=== PATIENT | female | born 1940 | race Caucasian/White ===

== ENCOUNTER 2018-12-27 05:37 | Inpatient (IN) | payer MEDICARE, BC ==
[~2018-12-27 05:37] MED LIST: Buffered Lidocaine 1% SYRIN* 1 ML/SYRINGE INTRADERM ONE
--- OUTSIDE RECORDS SUMMARY | 2018-12-27 05:39 | XMS REPORT | Continuity of Care Document ---
:1940 External Reference #:[id number] Author Name Carly Edwards Care Team Providers Name Role Phone Liliam Grey MD Primary Care Physician Unavailable Payers Date Identification Numbers Payment Provider Subscriber Policy Number: [id number] Medicare Cheryl Resendiz PayID: [id number] [address] [place] [address] Policy Number: [id number] [employer] Cheryl Resendiz PayID: [id number] [address] [address] [place] [address] Advance Directives Description No Information Available Problems Date Description Provider Status Onset: 11/16/2018 Neurogenic claudication Christian Rivas M.D. Active Onset: 11/16/2018 Lumbar spondylolisthesis Christian Rivas M.D. 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 ETOH Use Rarely consumes alcohol Tobacco Use Start: Unknown Patient has never smoked Recreational Drug Use Never Used Drugs Smoking Status Reviewed: 12/07/18 Patient has never smoked Allergies, Adverse Reactions, Alerts Description No Known Drug Allergies Medications Medication Date Status Form Strength Qnty SIG Indications Ordering Provider Lisinopril-Hy Active Tablets 20-25mg 1 by Unknown drochlorothia 000 mouth zide every day Gabapentin Active Capsules 300mg 1 by Unknown 000 mouth three times a day Prolia Active Solution 60mg/ml 60 mg sc Unknown 000 q6mon Calcium + D Active Chewtabs 500-1000-40 Unknown 000 mg-Unt-mcg Aspir-Low Hx Tablets DR 81mg 1 by Unknown 000 - mouth every 019 day Immunizations Description No Information Available Vital Signs Date Vital Result Comment 12/07/2018 1:15pm Height 65 inches 5'5" Weight 128.00 lb BP Systolic Sitting 140 mmHg BP Diastolic Sitting 80 mmHg Pain Level 0 BMI (Body Mass Index) 21.3 kg/m2 11/16/2018 1:22pm Height 65 inches 5'5" Weight 128.00 lb BP Systolic Sitting 138 mmHg BP Diastolic Sitting 80 mmHg Pain Level 0 BMI (Body Mass Index) 21.3 kg/m2 Results Description No Information Available Procedures Description No Information Available Encounters Type Date Location Provider Dx Diagnosis Office Visit 12/07/2018 Neurosurgery Christian Rivas M43.16 Spondylolisthesis 1:[facility] , lumbar region M48.062 Spinal stenosis, lumbar region with neurogenic claudication Office 11/16/2018 Neurosurgery Christian M43.16 Spondylolisthesis, Visit 1:[facility] M.[facility]. lumbar region M48.062 Spinal stenosis, lumbar region with neurogenic claudication Plan of Treatment Future Appointment(s):12/27/2018 7:30 am - Tika Ramirez PA-C at [facility]12/27/2018 7:30 am - Christian Rivas M.D. at [facility]12/07/2018 - Christian Rivas M.D.M43.16 Spondylolisthesis, lumbar [id number] Spinal stenosis, lumbar region with neurogenic claudicationFollow up:Surg scheduled for 12/27
--- OUTSIDE RECORDS SUMMARY | 2018-12-27 05:40 | XMS REPORT | Continuity of Care Document ---
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 Commercial Cheryl Resendiz PayID: [id number] [address] [address] [place] [address] Advance Directives Description No Information Available Problems Date Description Provider Status Onset: 08/12/2009 Benign essential hypertension Liliam Grey MD Active Onset: 05/18/2017 Mixed hyperlipidemia Liliam Grey MD Active Family History Date Family Member(s) Observation Comments Father Cancer, Prostate Mother Cancer, Colon Mother Tobacco Abuse Mother Hypertension First Son Diabetes, Juvenile First Daughter Diabetes, Juvenile Maternal Grandfather due to Cancer, Colon () Social History Type Date Description Comments Sex Unknown Marital Status Lives With Spouse Smoke-Free Home is smoke-free Occupation [employer] 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 Tobacco Use Start: Unknown Never Smoked Cigarettes ETOH Use Denies alcohol use ETOH Use Rarely consumes alcohol Tobacco Use Start: Unknown Patient has never smoked Smoking Status Reviewed: 12/13/18 Patient has never smoked Allergies, Adverse Reactions, Alerts Description No Known Drug Allergies Medications Medication Date Status Form Strength Qnty SIG Indications Ordering Provider Work Note pt will be M54.16 Que2018 having Liliam Leija MD 12/27/18 thus out of work at least until 01/23/19. Relase to work per surgeon Lisinopril-H 10/12/ Active Tablets 20-12.5mg 90tabs 1 by mouth I10 chantelle Alcala 2018 every day emma Graham RN [facility] Gabapentin 10/05/ Active Capsules 300mg 360cap take 1 M79.604 Fredrick, 2018 s capsule by Erin Weber, mouth 4 times RN MS [facility] a day Prolia 02/09/ Active Solution 60mg/ml 1ml 1 milliliters Z13.820 Fredrick, 2017 sc inj every Erin Webre, 6 mo RN MS [facility] Occuvite 01/27/ Active One Daily Fredrick, 2016 Erin Weber, RN MS [facility] Calcium Plus 08/11/ Active Tablets 500mg 0tabs 1 PO qd M81.0 Everardo Alcala 2005 Erin Weber, RN MS [facility] Prednisone 10/12/ Hx Tablets 20mg 5tabs one tab daily Fredrick, 2018 - x 5 days Erin Weber, 12/13/ RN MS [facility] 2019 Gabapentin 02/09/ Hx Capsules 100mg 90caps 300mg at hs M79.604 Fredrick, 2017 - and up to 300 Erin Weber, 10/05/ mg in am RN MS [facility] 2018 Prolia 05/18/ Hx Solution 60mg/ml 1units inject 1 M81.0 Que, 2016 - milliliters Liliam 02/09/ every 6 MD Liss 2017 months Proair HFA 10/26/ Hx Aerosol 108(90Base 1units 2 inhalations 466.0 Fredrick 2014 - ) mcg/Act by mouth Erin Weber, 01/27/ three times a RN MS [facility] 2016 day as needed for wheezing Medrol (Devin) 10/26/ Hx Tablets 4mg 1Pak use as 466.0 Fredrick 2015 - directed Erin Weber, 01/27/ RN MS [facility] 2016 Lisinopril-H 09/09/ Hx Tablets 10-12.5mg 30tabs take 1 tablet I10 chantelle Alcala 2009 - by mouth once emma Graham 10/12/ daily RN MS [facility] 2018 Lisinopril/H 05/19/ Hx Tabs 10-12.5mg 30tabs take 1 tablet 272.2 chantelle Grey 2009 - by mouth once Liliam carter 06/16/ daily MD Liss 2009 Lisinopril-H 12/09/ Hx Tablets 10-12.5mg 30tabs 1 po qd 401.1 matthias Greyoth 2009 - Liliam iazide 09/09/ MD Liss 2009 Valtrex 09/16/ Hx Tablets 1gm 21tabs 1 po tid Que, 2008 - Liliam 12/09/ MD Liss 2009 Lisinopril 10/11/ Hx Tablets 10mg 30tabs 1 PO qd 401.1 Fredrick, 2008 - Erin Weber, 12/09/ RN [place] [employer] 2009 Relafen 08/11/ Hx Tablets 750mg 60tabs 1-2 [facility] - Liliam 06/16/ MD Liss 2009 Fosamax 08/11/ Hx Tablets 70mg 12tabs 1 po qweek on [place], 2005 - empty stomach Erin Weber, 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 [place] [employer] 2012 On Holiday Starting 03/20/10 X 1 Yr Baby Asa 08/11/ Hx 81 qd [place], 2005 - Erin Weber, 12/13/ RN [place] [employer] 2018 Metamucil 08/11/ Hx Granules Tabs 2 tabs qd 2005 - Erin Weber, 05/04/ RN [place] [employer] 2011 Medications Administered in Office Medication Date Status Form Strength Qnty SIG Indications Ordering Provider Prolia 60 Administered Injection Nurses mg/ml 019 Schedule Mag Prolia 60 Administered Injection Nurses mg/ml 018 Schedule Mag Prolia 60 Administered Injection Nurses mg/ml 017 Schedule Mag Immunizations CPT Code Status Date Vaccine Lot # [id number] Given 06/23/2018 Influenza Vac, Quadrivalent, Split, 0.5mL Dosage, [id number] Im Use 59169 Given 11/12/2017 Tdap (Adacel) Ages 7 And Above Only 93867 Given 05/18/2017 Influenza Vac, Quadrivalent, Split, 0.5mL Dosage, [id number] Im Use 75527 Given 01/27/2017 Prevnar 13 Pneumococal Conjugate Vaccine [id number] 37965 Given 06/18/2016 Influenza Vac, Quadrivalent, Split, 0.5mL Dosage, [id number] Im Use 80774 Given 07/04/2015 Influenza Vac, Quadrivalent, Split, 0.5mL Dosage, [id number] Im Use Q2038 Given 07/30/2014 Fluzone Trivalent Immunization Q2038 Given 07/30/2014 Fluzone Trivalent Immunization [id number] Q2038 Given 07/03/2013 Fluzone Trivalent Immunization [id number] 09086 Given 05/17/2013 Zoster (Zostavax) [id number] 40369 Given 05/17/2013 Zoster (Zostavax) Q2038 Given 08/15/2012 Fluzone Trivalent Immunization [id number] Q2038 Given 07/07/2011 Fluzone Trivalent Immunization [id number] 05329 Given 10/20/2010 Tdap (Adacel) Ages 7 And Above Only [id number] 46258 Given 06/16/2010 Afluria Or Fluvirin Flu Vac Intramuscular 55870 Given 08/12/2009 Pneumococcal 23 Immunization Adult Or [id number] Immunosuppressed Patient 63239 Given 06/20/2009 Afluria Or Fluvirin Flu Vac Intramuscular [id number] 63641 Given 08/08/2008 Afluria Or Fluvirin Flu Vac Intramuscular [id number] 20611 Given 07/21/2007 Afluria Or Fluvirin Flu Vac Intramuscular 81570 Given 07/21/2007 Afluria Or Fluvirin Flu Vac Intramuscular [id number] 94846 Given 08/11/2006 Afluria Or Fluvirin Flu Vac Intramuscular [id number] Vital Signs Date Vital Result Comment 12/13/2018 3:08pm Heart Rate 72 /min BP Systolic 138 mmHg BP Diastolic 68 mmHg Height 63 inches 5'3" Weight 133.00 lb BMI (Body Mass Index) 23.6 kg/m2 10/12/2018 3:18pm Heart Rate 64 /min BP Systolic 190 mmHg BP Diastolic 86 mmHg Weight 133.00 lb 07/27/2018 3:23pm Heart Rate 70 /min BP Systolic 158 mmHg BP Diastolic 77 mmHg Weight 135.12 lb 02/09/2018 3:39pm Heart Rate 63 /min BP Systolic 170 mmHg 168/90 BP Diastolic 79 mmHg 168/90 Weight 132.12 lb 08/06/2017 3:38pm Heart Rate 73 /min BP Systolic 147 mmHg BP Diastolic 76 mmHg Weight 133.38 lb 05/18/2017 2:11pm Heart Rate 64 /min BP Systolic 154 mmHg BP Diastolic 70 mmHg BP Systolic Recheck 140 mmHg BP Diastolic Recheck 68 mmHg Height 63 inches 5'3" Weight 132.00 lb BMI (Body Mass Index) 23.4 kg/m2 01/27/2017 3:04pm Heart Rate 62 /min BP Systolic 156 mmHg BP Diastolic 80 mmHg Height 63 inches 5'3" Weight 134.25 lb BMI (Body Mass Index) 23.8 kg/m2 10/26/2014 4:43pm Heart Rate 63 /min BP Systolic 179 mmHg BP Diastolic 77 mmHg Weight 132.50 lb 05/31/2014 3:13pm Heart Rate 63 /min BP Systolic 143 mmHg BP Diastolic 76 mmHg Height 64 inches 5'4" Weight 132.38 lb BMI (Body Mass Index) 22.7 kg/m2 12/28/2013 3:27pm Heart Rate 73 /min BP Systolic 150 mmHg BP Diastolic 72 mmHg Weight 133.50 lb 12/01/2013 2:03pm Heart Rate 65 /min BP Systolic 148 mmHg BP Diastolic 76 mmHg Height 64 inches 5'4" Weight 131.00 lb BMI (Body Mass Index) 22.5 kg/m2 11/28/2012 5:34pm Heart Rate 60 /min BP Systolic 162 mmHg BP Diastolic 78 mmHg BP Systolic Recheck 138 mmHg BP Diastolic Recheck 76 mmHg Height 64.5 inches 5'4.50" Weight 136.00 lb BMI (Body Mass Index) 23.0 kg/m2 05/04/2012 10:46am Heart Rate 77 /min BP Systolic 134 mmHg BP Diastolic 81 mmHg Weight 133.00 lb 04/20/2011 12:18pm Heart Rate 64 /min BP Systolic 156 mmHg BP Diastolic 62 mmHg BP Systolic Recheck 136 mmHg BP Diastolic Recheck 64 mmHg Weight 140.00 lb 10/20/2010 4:31pm Heart Rate 64 /min BP Systolic 142 mmHg BP Diastolic 68 mmHg BP Systolic Recheck 138 mmHg BP Diastolic Recheck 66 mmHg Height 64.75 inches 5'4.75" Weight 139.00 lb BMI (Body Mass Index) 23.3 kg/m2 Urine Dipstick - Blood NEGATIVE Urine Dipstick - Protein NEGATIVE Urine Dipstick - Glucose NEGATIVE 06/16/2010 3:52pm Heart Rate 64 /min BP Systolic 146 mmHg BP Diastolic 78 mmHg BP Systolic Recheck 128 mmHg BP Diastolic Recheck 78 mmHg Weight 138.00 lb 02/14/2010 3:47pm Heart Rate 76 /min BP Systolic 120 mmHg BP Diastolic 54 mmHg Weight 140.00 lb 12/09/2009 3:58pm Heart Rate 66 /min BP Systolic 184 mmHg BP Diastolic 81 mmHg Weight 140.00 lb 08/12/2009 5:59pm Heart Rate 72 /min BP Systolic 150 mmHg BP Diastolic 66 mmHg Height 64.75 inches 5'4.75" Weight 139.00 lb BMI (Body Mass Index) 23.3 kg/m2 Urine Dipstick - Blood NEGATIVE Urine Dipstick - Protein NEGATIVE Urine Dipstick - Glucose NEGATIVE 10/11/2008 3:26pm Heart Rate 65 /min BP Systolic 199 mmHg BP Diastolic 96 mmHg Height 64.5 inches 5'4.50" Weight 144.00 lb BMI (Body Mass Index) 24.3 kg/m2 03/20/2008 8:29am Heart Rate 71 /min BP Systolic 153 mmHg BP Diastolic 87 mmHg Height 64.5 inches 5'4.50" Weight 147.00 lb BMI (Body Mass Index) 24.8 kg/m2 07/21/2007 3:50pm Body Temperature 97.1 F Height 64.5 inches 5'4.50" 03/10/2007 1:23pm Heart Rate 80 /min BP Systolic 146 mmHg BP Diastolic 70 mmHg Height 64.5 inches 5'4.50" Weight 150.00 lb BMI (Body Mass Index) 25.3 kg/m2 08/11/2006 10:03am Heart Rate 80 /min BP Systolic 160 mmHg BP Diastolic 100 mmHg Weight 148.00 lb Results Test Date Facility Test Result H/L Range Note CBC with Auto Diff-fcmg 12/13/2018 [facility] WBC 5.4 K/uL 4.1-11.0 RBC 4.84 M/uL 4.00-5.40 Hemoglobin 14.0 gm/dL 12.0-16.0 Hematocrit 41.3 % 36.0-47.0 MCV 85.3 fL 80.0-97.0 MCH 28.9 pg 27.0-32.0 MCHC 33.9 g/dL 32.0-36.0 RDW 14.0 % 11.5-14.5 PLT Count 215 K/ul 140-400 MPV 7.0 FL Low 7.1-10.7 Neutrophil 57.0 % 35.0-75.0 Lymphocyte 25.9 % 16.0-52.0 Monocyte 10.2 % High 2.0-10.0 Eosinophil 6.1 % High 0.0-5.0 Basophil 0.8 % 0.0-4.0 Abs Neutrophils 3.1 K/uL 2.1-8.0 Abs Lymphocytes 1.4 K/uL 0.8-5.5 Abs Monocytes 0.6 K/uL 0.1-1.0 Abs Eosinophils 0.3 K/uL 0.0-0.5 Abs Basophils 0.0 K/uL 0.0-0.3 Basic (BMP) 12/13/2018 [facility] Sodium 140 mmol/L 135-146 1 Potassium 5.1 mmol/L 3.5-5.2 Chloride# 103 mmol/L 97-110 2 Carbon Dioxide 31 mmol/L 24-34 Glucose 109 mg/dL High 70-105 BUN 22 mg/dL 6-26 Creatinine 0.8 mg/dL 0.5-1.4 Calcium 10.4 mg/dL High 8.5-10.2 Non Tiff Egfr >60 >60 3 Tiff Egfr >60 >60 4 Anion Gap 6 mmol/L 5-15 5 Xray 02/10/2018 [facility], <pending> [place] [address] Screening, Bilateral [phone] Lipid 05/18/2017 [facility] Cholesterol 221 mg/dL High 50-199 6 Triglycerides 174 mg/dL 30-200 7 HDL 70 mg/dL 35-85 8 Chol/ HDL Ratio 3.2 ratio Low 3.7-5.6 VLDL 35 mg/dL High 2-29 LDL (Calc) 116 mg/dL High 20-99 9 Laboratory test finding 05/18/2017 [facility] Vit D25oh 32 ng/mL 31-100 Comprehensive Met Panel-FCMG 05/18/2017 [facility] Sodium 142 mmol/L 135- 146 10 Potassium 4.1 mmol/L 3.5-5.2 Chloride# 105 mmol/L 97-110 11 Carbon Dioxide 28 mmol/L 24-34 Glucose 147 mg/dL High 70-105 BUN 21 mg/dL 6-26 Creatinine 0.9 mg/dL 0.5-1.4 Calcium 9.9 mg/dL 8.5-10.2 Total Protein 6.0 g/dL 6.0-8.0 Albumin 4.1 g/dL 3.6-4.9 Globulin 1.9 g/dL Low 2.0-3.5 A/G Ratio 2.2 Ratio 1.0-2.2 Total Bilirubin 0.7 mg/dL 0.1-1.3 Alkaline Phosphatase 69 U/L 24-140 Alt 17 U/L 3-42 Ast 23 U/L 8-42 Tiff Egfr >60 >60 12 Non Tiff Egfr 58 Low >60 13 Anion Gap 9 mmol/L 7-16 14 Laboratory test finding 05/18/2017 [facility] TSH 2.42 uIU/mL 0.35-4.94 Comprehensive Metabolic (CMP) 05/31/2014 [facility] Sodium 134 mmol/L 134- 142 15 Potassium 4.4 mmol/L 3.5-5.2 Chloride 100 mmol/L 97-109 Carbon Dioxide 32 mmol/L 24-34 Glucose 78 mg/dL 70-105 BUN 17 mg/dL 6-26 Creatinine 0.9 mg/dL 0.5-1.4 Calcium 10.4 mg/dL High 8.5-10.2 Total Protein 6.1 g/dL 6.0-8.0 Albumin 4.1 g/dL 3.6-4.9 Globulin 2.0 g/dL 2.0-3.5 A/G Ratio 2.1 Ratio 1.0-2.2 Total Bilirubin 0.8 mg/dL 0.1-1.3 Alkaline Phosphatase 56 U/L 24-140 Alt 13 U/L 3-42 Ast 20 U/L 8-42 Anion Gap 6 mmol/L 6-14 Tiff Egfr >60 >60 16 Non Tiff Egfr >60 >60 17 CBC With Auto Diff 11/03/2013 [facility] WBC 5.8 K/uL 4.1-11.0 RBC 5.02 M/uL 4.00-5.40 Hemoglobin 13.0 gm/dL 12.0-16.0 Hematocrit 38.7 % 36.0-47.0 MCV 77.1 fL Low 80.0-97.0 MCH 25.8 pg Low 27.0-32.0 MCHC 33.5 g/dL 32.0-36.0 RDW 14.7 % High 11.5-14.5 PLT Count 243 K/ul 140-400 Neutrophil 68.0 % 35.0-75.0 Lymphocyte 19.1 % 16.0-52.0 Monocyte 7.9 % 2.0-10.0 Eosinophil 4.0 % 0.0-5.0 Basophil 1.0 % 0.0-4.0 Abs Neutrophils 4.0 K/uL 2.1-8.0 Abs Lymphocytes 1.1 K/uL 0.8-5.5 Abmon 0.5 K/uL 0.1-1.0 Abs Eosinophils 0.2 K/uL 0.0-0.5 Abs Basophils 0.1 K/uL 0.0-0.3 Comprehensive Metabolic (CMP) 11/03/2013 [facility] Sodium 140 mmol/L 134- 142 Potassium 5.0 mmol/L 3.5-5.2 Chloride 107 mmol/L 97-109 Carbon Dioxide 29 mmol/L 24-34 Glucose 94 mg/dL 70-105 BUN 19 mg/dL 6-26 Creatinine 1.0 mg/dL 0.5-1.4 Calcium 10.1 mg/dL 8.5-10.2 Total Protein 6.0 g/dL 6.0-8.0 Albumin 4.2 g/dL 3.6-4.9 Globulin 1.8 g/dL Low 2.0-3.5 A/G Ratio 2.3 Ratio High 1.0-2.2 Total Bilirubin 0.9 mg/dL 0.1-1.3 Alkaline Phosphatase 60 U/L 24-140 Alt 13 U/L 3-42 Ast 20 U/L 8-42 Anion Gap 9 mmol/L 6-14 Tiff Egfr >60 >60 18 Non Tiff Egfr 52 Low >60 19 Laboratory test finding 11/03/2013 [facility] Vit D,25 Hydroxy 38 ng/mL 31- 100 Lipid 11/03/2013 [facility] Cholesterol 209 mg/dL High 50-199 Triglycerides 72 mg/dL 30-200 HDL 66 mg/dL 35-85 20 Chol/ HDL Ratio 3.2 ratio Low 3.7-5.6 VLDL 14 mg/dL 2-29 LDL (Calc) 129 mg/dL High 20-99 21 CBC With Auto Diff 11/04/2012 [facility] WBC 4.5 K/uL 4.1-11.0 22 RBC 4.58 M/uL 4.00-5.40 Hemoglobin 11.9 gm/dL Low 12.0-16.0 Hematocrit 37.2 % 36.0-47.0 MCV 81.3 fL 80.0-97.0 MCH 26.1 pg Low 27.0-32.0 MCHC 32.1 g/dL 32.0-36.0 RDW 14.4 % 11.5-14.5 PLT Count 242 K/ul 140-400 Neutrophil 63.6 % 35.0-75.0 Lymphocyte 22.2 % 16.0-52.0 Monocyte 9.0 % 2.0-10.0 Eosinophil 4.3 % 0.0-5.0 Basophil 0.9 % 0.0-4.0 Abs Neutrophils 2.8 K/uL 2.1-8.0 Abs Lymphocytes 1.0 K/uL 0.8-5.5 Abs Monocytes 0.4 K/uL 0.1-1.0 Abs Eosinophils 0.2 K/uL 0.0-0.5 Abs Basophils 0.0 K/uL 0.0-0.3 Lipid 11/04/2012 [facility] Cholesterol 228 mg/dL High 50-199 Triglycerides 55 mg/dL 30-200 HDL 70 mg/dL 35-85 23 Chol/ HDL Ratio 3.3 ratio Low 3.7-5.6 VLDL 11 mg/dL 2-29 LDL (Calc) 147 mg/dL High 20-129 24 Non HDL Cholesterol 158 mg/dL High 20-129 25 Comprehensive Metabolic (CMP) 11/04/2012 [facility] Sodium 139 mmol/L 134- 142 Potassium 4.7 mmol/L 3.5-5.2 26 Chloride 106 mmol/L 97-109 Carbon Dioxide 31 mmol/L 24-34 Glucose 86 mg/dL 70-105 BUN 26 mg/dL 6-26 Creatinine 1.2 mg/dL 0.5-1.4 Calcium 10.2 mg/dL 8.5-10.2 Total Protein 6.2 g/dL 6.0-8.0 Albumin 4.3 g/dL 3.6-4.9 Globulin 1.9 g/dL Low 2.0-3.5 A/G Ratio 2.3 Ratio High 1.0-2.2 Total Bilirubin 0.9 mg/dL 0.1-1.3 Alkaline Phosphatase 59 U/L 24-140 Alt 15 U/L 3-42 Ast 23 U/L 8-42 Anion Gap 7 mmol/L 6-14 Tiff Egfr 56 Low >60 27 Non Tiff Egfr 46 Low >60 28 Lipid 05/11/2012 [facility] Cholesterol 210 mg/dL High 50-199 29 Triglycerides 135 mg/dL 30-200 HDL 69 mg/dL 35-85 30 Chol/ HDL Ratio 3.0 ratio Low 3.7-5.6 VLDL 27 mg/dL 2-29 LDL (Calc) 114 mg/dL 20-129 31 Laboratory test finding 05/11/2012 [facility] Vit D,25 Hydroxy 42 ng/mL 31- 100 TSH 1.98 uIU/mL 0.34-5.60 Comprehensive Metabolic (CMP) 05/11/2012 [facility] Sodium 141 mmol/L 134- 142 Potassium 5.2 mmol/L 3.5-5.2 Chloride 107 mmol/L 97-109 Carbon Dioxide 27 mmol/L 24-34 Glucose 105 mg/dL 70-105 BUN 20 mg/dL 6-26 Creatinine 1.0 mg/dL 0.5-1.4 Calcium 9.8 mg/dL 8.5-10.2 Total Protein 6.0 g/dL 6.0-8.0 Albumin 4.1 g/dL 3.6-4.9 Globulin 1.9 g/dL Low 2.0-3.5 A/G Ratio 2.2 Ratio 1.0-2.2 Total Bilirubin 0.8 mg/dL 0.1-1.3 Alkaline Phosphatase 53 U/L 24-140 Alt 15 U/L 3-42 Ast 20 U/L 8-42 Anion Gap 12 mmol/L 6-14 Tiff Egfr >60 >60 32 Non Tiff Egfr 57 Low >60 33 CBC With Auto Diff 11/19/2010 [facility] WBC 5.6 K/uL 4.1-11.0 RBC 4.36 M/uL 4.00-5.40 HGB 12.2 gm/dL 12.0-16.0 HCT 36.0 % 36.0-47.0 MCV 82.5 fL 80.0-97.0 MCH 28.0 pg 27.0-32.0 MCHC 33.9 g/dL 32.0-36.0 RDW 14.1 % 11.5-14.5 PLT 244 K/ul 140-400 NE% 57.9 % 35.0-75.0 Ly% 23.8 % 16.0-52.0 Mo% 10.9 % High 2.0-10.0 Eo% 6.7 % High 0.0-5.0 Ba% 0.7 % 0.0-4.0 NE# 3.2 K/uL 2.1-8.0 Ly# 1.3 K/uL 0.8-5.5 Mo# 0.6 K/uL 0.1-1.0 Eo# 0.4 K/uL 0.0-0.5 Ba# 0.0 K/uL 0.0-0.3 Comprehensive Metabolic (CMP) 11/19/2010 [facility] Na 138 mmol/L 135-144 K 4.3 mmol/L 3.6-5.2 CL 104 mmol/L 97-110 Co2 28 mmol/L 23-32 Glu 112 mg/dL High 70-105 BUN 18 mg/dL 6-22 Creat 0.9 mg/dL 0.5-1.3 CA 10.1 mg/dL 8.6-10.2 BUN/CR 20 ratio 12-20 TP 5.5 g/dL Low 5.8-7.8 Alb 3.7 g/dL 3.5-4.8 Glob 1.8 g/dL Low 2.0-3.5 A/G 2.1 Ratio 1.0-2.2 Tbili 0.6 mg/dL 0.3-1.2 Alkp 61 U/L 24-140 Alt 31 U/L 5-45 Ast 31 U/L 12-40 Anion Gap 10 mmol/L 8-16 NAAeGFR >60 >60 34 AAeGFR >60 >60 35 Basic (BMP) 05/09/2010 [facility] (Do not Use) Sodium 142 mmol/L 135- 144 36 [facility] [place] [address] [phone] Potassium 5.2 mmol/L 3.6-5.2 Chloride 106 mmol/L 97-110 Carbon Dioxide 28 mmol/L 23-32 Glucose 105 mg/dL 70-105 BUN 19 mg/dL 6-22 Creatinine 1.1 mg/dL 0.5-1.3 BUN/CR 17 Ratio Anion Gap 13 mmol/L 8-16 Calcium 10.0 mg/dL 8.6-10.2 GFR Calculation 52 mL/min Low 60-175 37 GFR For > 60 mL/min 60-175 38 Laboratory test 09/16/2009 [facility] (Do not Use) TSH 2.93 uIU/ml 0.34 -5.60 finding [facility] [place] [address] [phone] Vitamin D, 25 Hydroxy 43 ng/mL 31-100 Lipid Panel 09/16/2009 [facility] (Do not Use) Cholesterol 204 mg/dL High 50-199 [facility] [place] [address] [phone] Triglycerides 90 mg/dL 10-150 HDL 62 mg/dL 35-85 39 Chol/HDL Ratio 3.3 Ratio Low 3.7-5.6 40 VLDL 18 mg/dL 2-29 LDL (Calc) 124 mg/dL 20-129 41 CMP 09/16/2009 [facility] (Do not Use) Sodium 142 mmol/L 135-144 [facility] [place] [address] [phone] Potassium 4.7 mmol/L 3.6-5.2 Chloride 109 mmol/L 97-110 Carbon Dioxide 25 mmol/L 23-32 Glucose 91 mg/dL 70-105 BUN 20 mg/dL 6-22 Creatinine 1.1 mg/dL 0.5-1.3 BUN/CR 18 Ratio Calcium 9.8 mg/dL 8.6-10.2 42 Total Protein 5.8 g/dL 5.8-7.8 Albumin 3.8 g/dL 3.5-4.8 Globulin 2.0 g/dL 2.0-3.5 A/G Ratio 1.9 Ratio 1.0-2.2 Total Bilirubin 0.6 mg/dL 0.3-1.2 43 Alkaline Phosphatase 60 U/L 24-140 Alt 19 U/L 5-45 Ast 24 U/L 12-40 Anion Gap 13 mmol/L 8-16 GFR Calculation 52 mL/min Low 60-175 44 GFR For > 60 mL/min 60-175 45 CBC With Auto Diff 09/16/2009 [facility] (Do not Use) WBC 6.3 K/ul 4.0- 10.9 [facility] [place] [address] [phone] RBC 4.76 M/ul 4.20-5.40 Hemoglobin 12.8 GM/dl 12.5-16.0 Hematocrit 39.0 % 36.0-47.0 MCV 82.1 FL 80.0-97.0 MCH 26.8 pg Low 27.0-31.0 MCHC 32.7 g/dL 32.0-36.0 RDW 14.0 % 11.5-14.5 Platelet Count 249 K/ul 140-440 Neutrophils 64.0 % 50-70 Lymphocytes 24.1 % 20-44 Monocytes 6.7 % 2-9 Eosinophil 4.9 % High 0-4 Basophil 0.3 % 0-2 Absolute Neutrophils 4.0 K/ul 2.05-7.63 Absolute Lymphocytes 1.5 K/ul 0.8-4.8 Absolute Monocytes 0.4 K/ul 0.1-1.0 Absolute Eosinophils 0.3 K/ul 0.1-0.5 Absolute Basophils 0.0 K/ul 0.0-0.3 Hematology Comment (Comm2) N/A Laboratory test 08/12/2009 [facility] (Do not Use) [facility] Pap - (SEE NOTE) 46 finding [facility] [place] [address] [phone] CMP 11/02/2008 [facility] (Do not Use) Sodium 144 mmol/L 135-14 47 [facility] [address] [place] [phone] Potassium 4.9 mmol/L 3.6-5.2 Chloride 110 mmol/L 97-110 Carbon Dioxide 27 mmol/L 23-33 Glucose 81 mg/dL 70-105 BUN 18 mg/dL 6-22 Creatinine 1.1 mg/dL 0.5-1.3 BUN/CR 16 Ratio 12.0-20.0 Calcium 10.3 mg/dL High 8.6-10.2 48 Total Protein 5.6 g/dL Low 5.8-7.8 Albumin 3.7 g/dL 3.5-4.8 Globulin 1.9 g/dL Low 2.0-3.5 A/G Ratio 2.0 Ratio 1.0-2.2 Total Bilirubin 1.2 mg/dL 0.3-1.2 Alkaline Phosphatase 69 U/L 24-140 Alt 19 U/L 4-45 Ast 24 U/L 12-40 Anion Gap 12 mmol/L 8-16 GFR Calculation 53 mL/min 49 GFR For > 60 mL/min 50 Lipid Panel 11/02/2008 [facility] (Do not Use) Cholesterol 218 mg/dL High 50-199 [facility] [place] [address] [phone] Triglycerides 54 mg/dL 10-150 HDL 59 mg/dL 35-85 51 Chol/HDL Ratio 3.7 Ratio 52 VLDL 11 mg/dL LDL (Calc) 148 mg/dL High 20-129 53 Laboratory test 03/22/2008 [facility] (Do not Use) TSH 2.13 uIU/ml 0.34 -5.60 54 finding [facility] [place] [address] [phone] Vitamin D, 25 Hydroxy 33 ng/mL 19-58 CBC With Auto Diff 03/22/2008 [facility] (Do not Use) WBC 5.8 K/ul 4.0- 10.9 [facility] [place] [address] [phone] RBC 5.01 M/ul 4.20-5.40 Hemoglobin 14.5 GM/dl 12.5-16.0 Hematocrit 43.0 % 36.0-47.0 MCV 85.8 FL 80.0-97.0 MCH 29.0 pg 27.0-31.0 MCHC 33.8 g/dL 32.0-36.0 RDW 13.6 % 11.5-14.5 Platelet Count 258 K/ul 140-440 Neutrophils 51.4 % 50-70 Lymphocytes 32.6 % 20-44 Monocytes 6.6 % 2-9 Eosinophil 8.6 % High 0-4 Basophil 0.8 % 0-2 Absolute Neutrophils 3.0 K/ul 2.05-7.63 Absolute Lymphocytes 1.9 K/ul 0.8-4.8 Absolute Monocytes 0.4 K/ul 0.1-1.0 Absolute Eosinophils 0.5 K/ul 0.1-0.5 Absolute Basophils 0.0 K/ul Low 0.1-0.3 Lipid Panel 03/22/2008 [facility] (Do not Use) Cholesterol 244 mg/dL High 50-199 [facility] [place] [address] [phone] Triglycerides 98 mg/dL 10-150 HDL 68 mg/dL 35-85 55 Chol/HDL Ratio 3.6 Ratio 56 VLDL 20 mg/dL LDL (Calc) 156 mg/dL High 20-129 57 CMP 03/22/2008 [facility] (Do not Use) Sodium 143 mmol/L 135-144 [facility] [place] [address] [phone] Potassium 4.9 mmol/L 3.6-5.2 Chloride 108 mmol/L 97-110 Carbon Dioxide 30 mmol/L 23-33 Glucose 90 mg/dL 70-105 BUN 17 mg/dL 6-22 Creatinine 1.2 mg/dL 0.5-1.3 BUN/CR 14 Ratio 12.0-20.0 Calcium 9.9 mg/dL 8.6-10.2 58 Total Protein 5.7 g/dL Low 5.8-7.8 Albumin 3.7 g/dL 3.5-4.8 Globulin 2.0 g/dL 2.0-3.5 A/G Ratio 1.9 Ratio 1.0-2.2 Total Bilirubin 1.2 mg/dL 0.3-1.2 Alkaline Phosphatase 61 U/L 24-140 Alt 22 U/L 4-45 Ast 28 U/L 12-40 Anion Gap 10 mmol/L 8-16 GFR Calculation 48 mL/min 59 GFR For 58 mL/min 60 CBC With Auto Diff 08/31/2006 [facility] (Do not Use) WBC 6.0 K/ul 4.0- 10.9 [facility] [place] [address] [phone] RBC 4.86 M/ul 4.20-5.40 Hemoglobin 14.2 GM/dl 12.5-16.0 Hematocrit 41.9 % 36.0-47.0 MCV 86.1 FL 80.0-97.0 MCH 29.1 pg 27.0-31.0 MCHC 33.8 g/dL 32.0-36.0 RDW 12.5 % 11.5-14.5 Platelet Count 275 K/ul 140-440 Neutrophils 63.5 % 50-70 Lymphocytes 22.0 % 20-44 Monocytes 6.4 % 2-9 Eosinophil 7.4 % High 0-4 Basophil 0.7 % 0-2 Absolute Neutrophils 3.9 K/ul 2.05-7.63 Absolute Lymphocytes 1.3 K/ul 0.8-4.8 Absolute Monocytes 0.4 K/ul 0.1-1.0 Absolute Eosinophils 0.4 K/ul 0.1-0.5 Absolute Basophils 0.0 K/ul Low 0.1-0.3 CMP 08/31/2006 [facility] (Do not Use) Sodium 142 mmol/L 135-144 [facility] [place] [address] [phone] Potassium 5.3 mmol/L High 3.6-5.2 61 Chloride 108 mmol/L 97-110 Carbon Dioxide 27 mmol/L 23-33 Glucose 86 mg/dL 70-105 BUN 13 mg/dL 6-22 Creatinine 1.0 mg/dL 0.5-1.3 BUN/CR 13 Ratio 12.0-20.0 Calcium 9.5 mg/dL 8.6-10.2 Total Protein 6.1 g/dL 5.8-7.8 Albumin 3.8 g/dL 3.5-4.8 Globulin 2.3 g/dL 2.0-3.5 A/G Ratio 1.7 Ratio 1.0-2.2 Total Bilirubin 1.0 mg/dL 0.3-1.2 Alkaline Phosphatase 69 U/L 24-140 Alt 21 U/L 4-45 Ast 28 U/L 12-40 Anion Gap 12 mmol/L 8-16 GFR White Male 79 GFR White Female 59 GFR Black Male 96 GFR Black Female 71 GFR Guidelines 0 62 Laboratory test 08/31/2006 [facility] (Do not Use) TSH 2.97 uIU/ml 0.50 -6.00 finding [facility] [place] [address] [phone] Lipid Panel 08/31/2006 [employer] (Do not Use) Cholesterol 234 mg/dL High 50-199 [facility] [place] [address] [phone] Triglycerides 78 mg/dL 10-150 HDL 69 mg/dL 35-85 Chol/HDL Ratio 3.4 Ratio VLDL 16 mg/dL LDL (Calc) 149 mg/dL High 20-129 CBC 02/16/2002 [employer] (Do not Use) WBC 7.0 K/ul 4.1-10.9 [facility] [place] [address] [phone] RBC 4.68 M/ul 4.2-6.3 Hemoglobin 13.9 GM/dl 12.0-16.0 Hematocrit 39.1 % 37.0-51.0 MCV 83.6 FL 80-97 MCH 29.7 pg 26.0-32.0 MCHC 35.5 g/dL 31.0-36.0 RDW 12.5 % 11.5-14.5 Platelet Count 324 K/ul 140-440 Neutrophils 60.9 % 50-70 Lymphocytes 24.4 % 20-44 Monocytes 7.3 % 2-9 Eosinophil 6.4 % High 0-4 Basophil 1.0 % 0-2 Absolute Neutrophils 4.3 K/ul 2.05-7.63 Absolute Lymphocytes 1.7 K/ul 0.8-4.8 Absolute Monocytes 0.5 K/ul 0.1-1.0 Absolute Eosinophils 0.4 K/ul 0.1-0.5 Absolute Basophils 0.1 K/ul 0.1-0.3 Hepatic Liver 02/16/2002 [employer] (Do not Use) Total Protein 6.5 g/dL 6.3-8.2 Panel [facility] [place] [address] [phone] Albumin 3.8 g/dL 3.5-5.0 Total Bilirubin 0.5 mg/dL 0.2-1.3 Direct Bilirubin 0.1 mg/dL 0.0-0.4 Ast 43 U/L High 14-36 Alt 42 U/L 9-52 Alkaline Phosphatase 81 U/L 38-126 1 Updated reference range on new analyzer 2 Updated reference range on new analyzer 3 Concerning GFR Guidelines: Normal function or mild renal disease, if clinically at risk: >/=60 mL/min Moderately decreased: 30-59 Severely decreased: 15-29 Renal failure: <15 Glomerular Filtration Rate (GFR) is estimated based on the MDRD equation, which assumes a steady state for creatinine as recommended by the National Kidney Disease Education Program in conjunction with the National Institutes of Health and the National Kidney Foundation. Clinical conditions in which it may be necessary to measure GFR by using clearance methods include extremes of age and body size, severe malnutrition or obesity, diseases of skeletal muscle, paraplegia or quadriplegia, vegetarian diet, rapidly changing kidney function, and calculation of the dose of potentially toxic drugs that are excreted by the kidneys. 4 Concerning GFR Guidelines for Americans: Normal function or mild renal disease, if clinically at risk: >/=60 mL/min Moderately decreased: 30-59 Severely decreased: 15-29 Renal failure: <15 5 Updated Reference Range 6 This sample is drawn by:NB. 7 Specimen Slightly Lipemic 8 Per NCEP ATP III Guidelines: Results lower than 40 mg/dL are suggestive of increased risk for coronary artery disease. Results > or=to 60 mg/dL are considered a negative risk factor. 9 Per NCEP ATP III Guidelines: Normal Population <130 Patients with medical conditions: CHD/DM Optimal: <100 Borderline high: 130-159 High: 160-189 Very high: >189 10 Updated reference range on new analyzer 11 Updated reference range on new analyzer 12 Concerning GFR Guidelines for Americans: Normal function or mild renal disease, if clinically at risk: >/=60 mL/min Moderately decreased: 30-59 Severely decreased: 15-29 Renal failure: <15 13 Concerning GFR Guidelines: Normal function or mild renal disease, if clinically at risk: >/=60 mL/min Moderately decreased: 30-59 Severely decreased: 15-29 Renal failure: <15 Glomerular Filtration Rate (GFR) is estimated based on the MDRD equation, which assumes a steady state for creatinine as recommended by the National Kidney Disease Education Program in conjunction with the National Institutes of Health and the National Kidney Foundation. Clinical conditions in which it may be necessary to measure GFR by using clearance methods include extremes of age and body size, severe malnutrition or obesity, diseases of skeletal muscle, paraplegia or quadriplegia, vegetarian diet, rapidly changing kidney function, and calculation of the dose of potentially toxic drugs that are excreted by the kidneys. 14 Updated reference range on new analyzer 15 This sample is drawn by:CT 16 Concerning GFR Guidelines for Americans: Normal function or mild renal disease, if clinically at risk: >/=60 mL/min Moderately decreased: 30-59 Severely decreased: 15-29 Renal failure: <15 17 Concerning GFR Guidelines: Normal function or mild renal disease, if clinically at risk: >/=60 mL/min Moderately decreased: 30-59 Severely decreased: 15-29 Renal failure: <15 Glomerular Filtration Rate (GFR) is estimated based on the MDRD equation, which assumes a steady state for creatinine as recommended by the National Kidney Disease Education Program in conjunction with the National Institutes of Health and the National Kidney Foundation. Clinical conditions in which it may be necessary to measure GFR by using clearance methods include extremes of age and body size, severe malnutrition or obesity, diseases of skeletal muscle, paraplegia or quadriplegia, vegetarian diet, rapidly changing kidney function, and calculation of the dose of potentially toxic drugs that are excreted by the kidneys. 18 Concerning GFR Guidelines for Americans: Normal function or mild renal disease, if clinically at risk: >/=60 mL/min Moderately decreased: 30-59 Severely decreased: 15-29 Renal failure: <15 19 Concerning GFR Guidelines: Normal function or mild renal disease, if clinically at risk: >/=60 mL/min Moderately decreased: 30-59 Severely decreased: 15-29 Renal failure: <15 Glomerular Filtration Rate (GFR) is estimated based on the MDRD equation, which assumes a steady state for creatinine as recommended by the National Kidney Disease Education Program in conjunction with the National Institutes of Health and the National Kidney Foundation. Clinical conditions in which it may be necessary to measure GFR by using clearance methods include extremes of age and body size, severe malnutrition or obesity, diseases of skeletal muscle, paraplegia or quadriplegia, vegetarian diet, rapidly changing kidney function, and calculation of the dose of potentially toxic drugs that are excreted by the kidneys. 20 Per NCEP ATP III Guidelines: Results lower than 40 mg/dL are suggestive of increased risk for coronary artery disease. Results > or=to 60 mg/dL are considered a negative risk factor. 21 Per NCEP ATP III Guidelines: Normal Population <130 Patients with medical conditions: CHD/DM Optimal: <100 Borderline high: 130-159 High: 160-189 Very high: >189 22 This sample is drawn by:NB. 23 Per NCEP ATP III Guidelines: Results lower than 40 mg/dL are suggestive of increased risk for coronary artery disease. Results > or=to 60 mg/dL are considered a negative risk factor. 24 Per NCEP ATP III Guidelines: Optimal: <100 Near optimal: 100-129 Borderline high: 130-159 High: 160-189 Very high: >189 25 Desirable: <130 Borderline High: 130-159 High: 160-189 Very high: 190 or greater 26 K+ result from aliquot tube. 27 Concerning GFR Guidelines for Americans: Normal function or mild renal disease, if clinically at risk: >/=60 mL/min Moderately decreased: 30-59 Severely decreased: 15-29 Renal failure: <15 28 Concerning GFR Guidelines: Normal function or mild renal disease, if clinically at risk: >/=60 mL/min Moderately decreased: 30-59 Severely decreased: 15-29 Renal failure: <15 Glomerular Filtration Rate (GFR) is estimated based on the MDRD equation, which assumes a steady state for creatinine as recommended by the National Kidney Disease Education Program in conjunction with the National Institutes of Health and the National Kidney Foundation. Clinical conditions in which it may be necessary to measure GFR by using clearance methods include extremes of age and body size, severe malnutrition or obesity, diseases of skeletal muscle, paraplegia or quadriplegia, vegetarian diet, rapidly changing kidney function, and calculation of the dose of potentially toxic drugs that are excreted by the kidneys. 29 This sample is drawn by:LISA 30 Per NCEP ATP III Guidelines: Results lower than 40 mg/dL are suggestive of increased risk for coronary artery disease. Results > or=to 60 mg/dL are considered a negative risk factor. 31 Per NCEP ATP III Guidelines: Optimal: <100 Near optimal: 100-129 Borderline high: 130-159 High: 160-189 Very high: >189 32 Concerning GFR Guidelines for Americans: Normal function or mild renal disease, if clinically at risk: >/=60 mL/min Moderately decreased: 30-59 Severely decreased: 15-29 Renal failure: <15 33 Concerning GFR Guidelines: Normal function or mild renal disease, if clinically at risk: >/=60 mL/min Moderately decreased: 30-59 Severely decreased: 15-29 Renal failure: <15 Glomerular Filtration Rate (GFR) is estimated based on the MDRD equation, which assumes a steady state for creatinine as recommended by the National Kidney Disease Education Program in conjunction with the National Institutes of Health and the National Kidney Foundation. Clinical conditions in which it may be necessary to measure GFR by using clearance methods include extremes of age and body size, severe malnutrition or obesity, diseases of skeletal muscle, paraplegia or quadriplegia, vegetarian diet, rapidly changing kidney function, and calculation of the dose of potentially toxic drugs that are excreted by the kidneys. 34 Concerning GFR Guidelines: Normal function or mild renal disease, if clinically at risk: >/=60 mL/min Moderately decreased: 30-59 Severely decreased: 15-29 Renal failure: <15 Glomerular Filtration Rate (GFR) is estimated based on the MDRD equation, which assumes a steady state for creatinine as recommended by the National Kidney Disease Education Program in conjunction with the National Institutes of Health and the National Kidney Foundation. Clinical conditions in which it may be necessary to measure GFR by using clearance methods include extremes of age and body size, severe malnutrition or obesity, diseases of skeletal muscle, paraplegia or quadriplegia, vegetarian diet, rapidly changing kidney function, and calculation of the dose of potentially toxic drugs that are excreted by the kidneys. 35 Concerning GFR Guidelines for Americans: Normal function or mild renal disease, if clinically at risk: >/=60 mL/min Moderately decreased: 30-59 Severely decreased: 15-29 Renal failure: <15 36 FASTING This sample is drawn by:DILIP. 37 Concerning GFR GUIDELINES: Normal Function or Mild Renal Disease, if clinically at risk: >/=60mL/min Moderately decreased: 30-59 Severely decreased: 15-29 Renal Failure: <15 Glomerular Filtration Rate (GFR) is estimated based on the MDRD equation, which assumes a steady state for creatinine as recommended by the National Kidney Disease Education Program in conjunction with the National Institutes of Health and the National Kidney Foundation. Clinical conditions in which it may be necessary to measure GFR by using clearance methods include extremes of age and body size, severe malnutrition or obesity, diseases of skeletal muscle, paraplegia or quadriplegia, vegetarian diet, rapidly changing kidney function, and calculation of the dose of potentially toxic drugs that are excreted by the kidneys. 38 Concerning GFR GUIDELINES: Normal Function or Mild Renal Disease, if clinically at risk: >/=60mL/min Moderately decreased: 30-59 Severely decreased: 15-29 Renal Failure: <15 39 PER NCEP ATP III GUIDELINES: RESULTS LOWER THAN 40 MG/DL ARE SUGGESTIVE OF INCREASED RISK FOR CORONARY ARTERY DISEASE. RESULTS > OR=TO 60 MG/DL ARE CONSIDERED A NEGATIVE RISK FACTOR. 40 INTERPRETATION OF CHOL-HDL RATIO CHD RISK FEMALE MALE VERY HIGH >8.3 >14.3 HIGH 5.6 - 8.3 6.7 - 14.3 AVERAGE 3.7 - 5.6 4.0 - 6.7 BELOW AVERAGE 2.5 - 3.7 2.7 - 4.0 PROTECTED <2.5 <2.7 41 PER NCEP ATP III GUIDELINES: OPTIMAL: <100 NEAR OPTIMAL: 100 - 129 BORDERLINE HIGH: 130 - 159 HIGH: 160 - 189 VERY HIGH: >189 42 The difference between the most recent result of 10.3 and the current result of 9.8 exceeds the absolute delta value of 0.3 as defined for this test. 43 The difference between the most recent result of 1.2 and the current result of 0.6 exceeds the absolute delta value of 0.3 as defined for this test. 44 Concerning GFR GUIDELINES: Normal Function or Mild Renal Disease, if clinically at risk: >/=60mL/min Moderately decreased: 30-59 Severely decreased: 15-29 Renal Failure: <15 Glomerular Filtration Rate (GFR) is estimated based on the MDRD equation, which assumes a steady state for creatinine as recommended by the National Kidney Disease Education Program in conjunction with the National Institutes of Health and the National Kidney Foundation. Clinical conditions in which it may be necessary to measure GFR by using clearance methods include extremes of age and body size, severe malnutrition or obesity, diseases of skeletal muscle, paraplegia or quadriplegia, vegetarian diet, rapidly changing kidney function, and calculation of the dose of potentially toxic drugs that are excreted by the kidneys. 45 Concerning GFR GUIDELINES: Normal Function or Mild Renal Disease, if clinically at risk: >/=60mL/min Moderately decreased: 30-59 Severely decreased: 15-29 Renal Failure: <15 46 [employer] [facility] Jeeran. [facility] [email or web address] [address] GYNECOLOGIC CYTOLOGY REPORT Accession Number: [id number] Source of Specimen(s): A: [facility] Vaginal/ Cervical/ Endocervical Pap Smear - One Vial Clinical Diagnosis and History: Date of Last Menstrual Period: None Provided Other Clinical Conditions: REFLEX TO DIGENE HPV ASSAY IF RESULTS OF THIS PAP ARE ASCUS Specimen Adequacy Satisfactory for evaluation Absence of endocervical/transformation zone component General Categorization Negative for intraepithelial lesion or malignancy Interpretation NEGATIVE FOR INTRAEPITHELIAL LESION OR MALIGNANCY Reported: 08/16/2009 Electronically Signed Out By Florencia WALLER(ASCP) [facility] ICD9 Code: V72.31 Unless otherwise specified, testing performed by [facility] [place] [address] [email or web address] [address] 47 This sample is drawn by:SRIDHAR 48 RESULT CONFIRMED The difference between the most recent result of 9.9 and the current result of 10.3 exceeds the absolute delta value of 0.3 as defined for this test. 49 Concerning GFR GUIDELINES: Normal Function or Mild Renal Disease, if clinically at risk: >/=60mL/min Moderately decreased: 30-59 Severely decreased: 15-29 Renal Failure: <15 Glomerular Filtration Rate (GFR) is estimated based on the MDRD equation, which assumes a steady state for creatinine as recommended by the National Kidney Disease Education Program in conjunction with the National Institutes of Health and the National Kidney Foundation. Clinical conditions in which it may be necessary to measure GFR by using clearance methods include extremes of age and body size, severe malnutrition or obesity, diseases of skeletal muscle, paraplegia or quadriplegia, vegetarian diet, rapidly changing kidney function, and calculation of the dose of potentially toxic drugs that are excreted by the kidneys. 50 Concerning GFR GUIDELINES: Normal Function or Mild Renal Disease, if clinically at risk: >/=60mL/min Moderately decreased: 30-59 Severely decreased: 15-29 Renal Failure: <15 51 PER NCEP ATP III GUIDELINES: RESULTS LOWER THAN 40 MG/DL ARE SUGGESTIVE OF INCREASED RISK FOR CORONARY ARTERY DISEASE. RESULTS > OR=TO 60 MG/DL ARE CONSIDERED A NEGATIVE RISK FACTOR. 52 INTERPRETATION OF CHOL-HDL RATIO CHD RISK FEMALE MALE VERY HIGH >8.3 >14.3 HIGH 5.6 - 8.3 6.7 - 14.3 AVERAGE 3.7 - 5.6 4.0 - 6.7 BELOW AVERAGE 2.5 - 3.7 2.7 - 4.0 PROTECTED <2.5 <2.7 53 PER NCEP ATP III GUIDELINES: OPTIMAL: <100 NEAR OPTIMAL: 100 - 129 BORDERLINE HIGH: 130 - 159 HIGH: 160 - 189 VERY HIGH: >189 54 FASTING 55 PER NCEP ATP III GUIDELINES: RESULTS LOWER THAN 40 MG/DL ARE SUGGESTIVE OF INCREASED RISK FOR CORONARY ARTERY DISEASE. RESULTS > OR=TO 60 MG/DL ARE CONSIDERED A NEGATIVE RISK FACTOR. 56 INTERPRETATION OF CHOL-HDL RATIO CHD RISK FEMALE MALE VERY HIGH >8.3 >14.3 HIGH 5.6 - 8.3 6.7 - 14.3 AVERAGE 3.7 - 5.6 4.0 - 6.7 BELOW AVERAGE 2.5 - 3.7 2.7 - 4.0 PROTECTED <2.5 <2.7 57 PER NCEP ATP III GUIDELINES: OPTIMAL <100 NEAR OPTIMAL 100 - 129 BORDERLINE HIGH 130 - 159 HIGH 160 - 189 VERY HIGH >189 58 The difference between the most recent result of 9.5 and the current result of 9.9 exceeds the absolute delta value of 0.3 as defined for this test. 59 Concerning GFR GUIDELINES: Normal Function or Mild Renal Disease, if clinically at risk: >/=60mL/min Moderately decreased: 30-59 Severely decreased: 15-29 Renal Failure: <15 Glomerular Filtration Rate (GFR) is estimated based on the MDRD equation, which assumes a steady state for creatinine as recommended by the National Kidney Disease Education Program in conjunction with the National Institutes of Health and the National Kidney Foundation. Clinical conditions in which it may be necessary to measure GFR by using clearance methods include extremes of age and body size, severe malnutrition or obesity, diseases of skeletal muscle, paraplegia or quadriplegia, vegetarian diet, rapidly changing kidney function, and calculation of the dose of potentially toxic drugs that are excreted by the kidneys. 60 Concerning GFR GUIDELINES: Normal Function or Mild Renal Disease, if clinically at risk: >/=60mL/min Moderately decreased: 30-59 Severely decreased: 15-29 Renal Failure: <15 61 NO VISIBLE HEMOLYSIS 62 Normal Function or Mild Renal Disease, if clinically at risk: >/=60 mL/min Moderately decreased: 30-59 Severely decreased: 15-29 Renal Failure: <15 Glomerular Filtration Rate (GFR) is estimated based on the MDRD equation, which assumes a steady state for creatinine as recommended by the National Kidney Disease Education Program in conjunction with the National Institutes of Health and the National Kidney Foundation. Clinical conditions in which it may be necessary to measure GFR by using clearance methods include extremes of age and body size, severe malnutrition or obesity, diseases of skeletal muscle, paraplegia or quadriplegia, vegetarian diet, rapidly changing kidney function, and calculation of the dose of potentially toxic drugs that are excreted by the kidneys. Procedures Date Code Description Status 12/13/2018 26495 Electrocardiogram Complete Completed 10/14/2018 91012 Admin Of Inj (Therapeutic Phrophylactic Or Diagnostic Completed Subq Inj 08/25/2018 46764 Physical Therapy Eval Completed 08/25/2018 63579 Nerve Conduction 7-8 Studies Completed 08/25/2018 28933 Needle Electromyography Complete, Five Or More Muscles Completed Studied 03/02/2018 62274 Admin Of Inj (Therapeutic Phrophylactic Or Diagnostic Completed Subq Inj 05/21/2017 94049 Admin Of Inj (Therapeutic Phrophylactic Or Diagnostic Completed Subq Inj 04/05/2017 [id number] Mammogram Completed 04/05/2017 [id number] Bone Mineral Density Test Completed 04/02/2016 [id number] Mammogram Completed 04/01/2015 [id number] Mammogram Completed 01/01/2014 [id number] Mammogram Completed 12/19/2013 [id number] Bone Mineral Density Test Completed 11/28/2012 03484 Electrocardiogram Complete Completed 05/05/2011 [id number] Colonoscopy Completed 10/29/2010 [id number] Mammogram Completed 10/20/2010 26155 Electrocardiogram Complete Completed 12/26/2009 41557 ECHO Transthoracis 2D W Spectral Doppler Completed 11/01/2009 60489 ECHO Transthoracis 2D W Spectral Doppler Completed 10/18/2009 57797 ECHO Transthoracis 2D W Spectral Doppler Completed 09/04/2009 [id number] Mammogram Completed 08/12/2009 19111 Electrocardiogram Complete Completed 08/12/2009 90453 Admin Of Inj (Therapeutic Phrophylactic Or Diagnostic Completed Subq Inj 06/20/2009 40590 Admin Of Inj (Therapeutic Phrophylactic Or Diagnostic Completed Subq Inj 03/20/2008 60664 Electrocardiogram Complete Completed 03/10/2007 75569 Electrocardiogram Complete Completed Encounters Type Date Location Provider Dx Diagnosis Office Visit 10/12/2018 3:00p Erin Melgoza, M79.604 Pain in RIGHT leg RN [employer] M79.605 Pain in LEFT leg M81.0 Age-related osteoporosis w/o current pathological fracture R03.0 Elevated blood-pressure reading, w/o diagnosis of htn Office Visit 07/27/2018 3:00p Erin Melgoza, G90.09 Other idiopathic RN [employer]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 M81.0 Age-related osteoporosis w/o current pathological fracture M54.5 Low back pain M79.604 Pain in RIGHT leg Office Visit 02/09/2018 3:00p Erin Melgoza, Z00.00 Encntr for general RN [employer] adult medical exam w/o abnormal findings E78.2 Mixed hyperlipidemia I10 Essential (primary) hypertension Z12.31 Encntr screen mammogram for malignant neoplasm of breast Z13.820 Encounter for screening for osteoporosis M79.604 Pain in RIGHT leg Z13.89 Encounter for screening for other disorder Office Visit 08/06/2017 3:20p Erin Melgoza, M81.0 Age-related RN [employer] osteoporosis w/o current pathological fracture E78.2 Mixed hyperlipidemia I10 Essential (primary) hypertension Office Visit 05/18/2017 1:45p Liliam Vincent M81.0 Age-related MD Liss osteoporosis w/o current pathological fracture E78.2 Mixed hyperlipidemia Z12.11 Encounter for screening for malignant neoplasm of colon I10 Essential (primary) hypertension Z23 Encounter for immunization Office Visit 01/27/2017 3:00p Erin Melgoza, Z00.00 Encntr for general RN [employer] adult medical exam w/o abnormal findings E78.2 Mixed hyperlipidemia Z23 Encounter for immunization Z12.31 Encntr screen mammogram for malignant neoplasm of breast Z13.820 Encounter for screening for osteoporosis Office Visit 10/26/2014 3:00p Erin Melgoza RN 466.0 Bronchitis Acute [employer] Office Visit 05/31/2014 3:00p Erin Melgoza, RN 401.1 Hypertension Benign [employer] 733.09 Osteoporosis Other 272.2 Hyperlipidemia Mixed Office Visit 12/01/2013 2:00p Erin Melgoza V70.0 Exam (Adult ) General RN [employer] Medical Routine AT Health Care Facility V76.19 Screening Breast Exam Malignant Neoplasms Other 733.09 Osteoporosis Other 272.2 Hyperlipidemia Mixed Office Visit 11/28/2012 4:30p Liliam Vincent MD V70.0 Exam ( Adult) General Medical Routine AT Health Care Facility 401.1 Hypertension Benign 733.09 Osteoporosis Other V76.10 Screening For Malignant Neoplasm Breast 272.0 Hypercholesterolemia Pure 785.9 Cardiovascular Symptoms Other V76.51 Special Screening For Malignant Neoplasms Colon Office Visit 05/04/2012 10:40a Erin Melgoza, RN 401.1 Hypertension Benign [employer] 733.09 Osteoporosis Other 272.0 Hypercholesterolemia Pure Office Visit 04/20/2011 12:15p Liliam Vincent 401.1 Hypertension Benign MD Liss Office Visit 10/20/2010 4:30p Liliam Vincent V70.0 Exam (Adult) General MD Liss Medical Routine AT Health Care Facility 401.1 Hypertension Benign 733.09 Osteoporosis Other V76.10 Screening For Malignant Neoplasm Breast V76.51 Special Screening For Malignant Neoplasms Colon 272.0 Hypercholesterolemia Pure 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.1 Fnwvknazjd-Jitndzi-Eltjmgew 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 Office Visit 06/16/2010 3:45p Liliam Vincent MD 401.1 Hypertension Benign V04.81 Need For Prophylactic Vaccination & Inoculation/Influenza Office Visit 02/14/2010 4:00p Liliam Vincent MD 401.1 Hypertension Benign 733.09 Osteoporosis Other Office Visit 12/09/2009 3:30p Liliam Vincent MD 401.1 Hypertension Benign 785.9 Cardiovascular Symptoms Other 719.46 Pain Joint Lower Leg Office Visit 08/12/2009 6:00p Liliam Vincent V72.31 Routine Developer Advocate MD Liss Examination 401.1 Hypertension Benign 733.09 Osteoporosis Other 272.0 Hypercholesterolemia Pure 785.9 Cardiovascular Symptoms Other V76.10 Screening For Malignant Neoplasm Breast V04.89 Need For Prophylactic Vaccination & Inoculation Other Virus V03.82 Streptococcus Pneumoniae Vaccination Spec Other Office Visit 10/11/2008 3:00p Erin Melgoza, RN 401.1 Hypertension Benign [employer] 272.2 Hyperlipidemia Mixed Office Visit 03/20/2008 8:15a Erin Melgoza, V70.0 Exam (Adult ) General RN [employer] Medical Routine AT Health Care Facility V16.49 Family History Malignant Neoplasm Other 401.1 Hypertension Benign 272.2 Hyperlipidemia Mixed 719.64 Joint Symptoms Other Hand V58.66 Long-Term Use Of Aspirin Office Visit 03/10/2007 1:15p Erin Melgoza, V72.31 Routine Developer Advocate RN MS TELEPHONE MESSENGER Examination 272.2 Hyperlipidemia Mixed 401.1 Hypertension Benign 733.09 Osteoporosis Other V76.2 Screening Malignant Neoplasm Cervix Office Visit 08/11/2006 9:30a Erin Melgoza, RN 733.09 Osteoporosis Other MS TELEPHONE MESSENGER 715.09 Osteoarthrosis Generalized Multiple Sites 401.1 Hypertension Benign 272.2 Hyperlipidemia Mixed V04.81 Need For Prophylactic Vaccination & Inoculation/Influenza V07.2 Prophylactic Immunotherapy Office Visit 02/16/2002 1:40p Erin Melgoza, 110.1 Dermatophytosis Nail RN MS TELEPHONE MESSENGER Plan of Treatment Future Appointment(s):03/16/2019 3:00 pm - Erin Alcala RN MS TELEPHONE MESSENGER at [facility]/13/2018 - Liliam Grey MDZ01.818 Encounter for other preprocedural xsqrkljyrihJ60.16 Radiculopathy, lumbar regionNew Medication:Work Note - pt will be having surgery 12/27/18 thus out of work at least until . Relase to work per [id number] Essential (primary) hypertensionFollow up:CS 3 mosZ79.82 snf (current) use of aspirinNew Xrays:Abdomen, Ultrasound, Complete, Scheduled: 12/21/18R09.89 Other specified symptoms and signs involving the circulatoryNew Xrays:Abdomen, Ultrasound, Complete, Scheduled: 12/06
--- OUTSIDE RECORDS SUMMARY | 2018-12-27 05:40 | XMS REPORT | Continuity of Care Document ---
:1940 External Reference #:[id number] Author Name Diane Barfield Care Team Providers Name Role Phone Liliam Grey MD Care Team Information Cleaning Maid Unavailable Payers Date Identification Numbers Payment Provider Subscriber Effective: 2006 Policy Number: [id number] Medicare Cheryl Resendiz PayID: [id number] [address] [place] [address] Effective: 2011 Policy Number: [id number] [facility] Commercial Cheryl Resendiz PayID: [id number] [address] [address] [place] [address] Advance Directives Description No Information Available Problems [...] is smoke-free Occupation [employer] 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 Relase to work per surgeon Lisinopril-H 10/12/ Active Tablets 20-12.5mg 90tabs 1 by mouth I10 chantelle Alcala 2018 every day emma Graham RN [facility] Gabapentin 10/05/ Active Capsules 300mg 360cap take 1 M79.604 [place], 2018 s capsule by Erin Weber, mouth 4 times RN [facility] a day Prolia 02/09/ Active Solution 60mg/ml 1ml 1 milliliters Z13.820 Fredrick, 2017 sc inj every Erin Weber, 6 mo RN [facility] Occuvite 01/27/ Active One Daily Fredrick, 2016 Erin Weber, RN [facility] Calcium Plus 08/11/ Active Tablets 500mg 0tabs 1 PO qd M81.0 Fredrick Vit D 2005 Erin Weber, RN MS [facility] Prednisone 10/12/ Hx Tablets 20mg 5tabs one tab daily Fredrick, 2018 - x 5 days Erin Weber, 12/13/ RN MS [facility] 2019 Gabapentin 02/09/ Hx Capsules 100mg 90caps 300mg at hs M79.604 Fredrick, 2017 - and up to 300 Erin Weber, 10/05/ mg in am RN [facility] 2018 Prolia 05/18/ Hx Solution 60mg/ml 1units inject 1 M81.0 Que, 2016 - milliliters Liliam 02/09/ every 6 MD Liss 2017 months Proair HFA 10/26/ Hx Aerosol 108(90Base 1units 2 inhalations 466.0 Fredrick 2014 - ) mcg/Act by mouth Erin Weber, 01/27/ three times a RN [facility] 2016 day as needed for wheezing Medrol (Devin) 10/26/ Hx Tablets 4mg 1Pak use as 466.0 Fredrick 2014 - directed Erin Weber, 01/27/ RN [facility] 2016 Lisinopril-H 09/09/ Hx Tablets 10-12.5mg 30tabs take 1 tablet I10 chantelle Alcala 2009 - by mouth once emma Graham 10/12/ daily RN [facility] 2018 Lisinopril/H 05/19/ Hx Tabs 10-12.5mg 30tabs take 1 tablet 272.2 chantelle Grey 2009 - by mouth once Liliam carter 06/16/ daily MD Liss 2009 Lisinopril-H 12/09/ Hx Tablets 10-12.5mg 30tabs 1 po qd 401.1 Que, ydrochloroth 2009 - Liliam iazide 09/09/ MD Liss 2009 Valtrex 09/16/ Hx Tablets 1gm 21tabs 1 po tid Que, 2008 - Liliam 12/09/ MD Liss 2009 Lisinopril 10/11/ Hx Tablets 10mg 30tabs 1 PO qd 401.1 [place], 2008 - Erin Weber, 12/09/ RN [employer] 2009 Relafen 08/11/ Hx Tablets 750mg 60tabs 1-2 po qd [facility], 2005 - Liliam 06/16/ MD Liss 2009 Fosamax 08/11/ Hx Tablets 70mg 12tabs 1 po qweek on [place], 2005 - empty stomach Erin 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, 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 [employer] 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 On Holiday Starting 03/20/10 X 1 Yr Baby Asa 08/11/ Hx 81 qd [place], 2005 - Erin Weber, 12/13/ RN [employer] 2018 Metamucil 08/11/ Hx Granules Tabs 2 tabs qd [place], 2005 - Erin Weber, 05/04/ RN [facility] [employer] 2011 Medications Administered in Office Medication Date Status Form Strength Qnty SIG Indications Ordering Provider Prolia 60 Administered Injection Nurses mg/ml 019 Schedule Mag Prolia 60 Administered Injection Nurses mg/ml 018 Schedule Mag Prolia 60 Administered Injection Nurses mg/ml 017 Schedule Mag Immunizations CPT Code Status Date Vaccine Lot # [id number] Given 06/23/2018 Influenza Vac, Quadrivalent, Split, 0.5mL Dosage, [id number] Im Use 98764 Given 11/12/2017 Tdap (Adacel) Ages 7 And Above Only 97555 Given 05/18/2017 Influenza Vac, Quadrivalent, Split, 0.5mL Dosage, [id number] Im Use 06970 Given 01/27/2017 Prevnar 13 Pneumococal Conjugate Vaccine [id number] 41046 Given 06/18/2016 Influenza Vac, Quadrivalent, Split, 0.5mL Dosage, [id number] Im Use 78542 Given 07/04/2015 Influenza Vac, Quadrivalent, Split, 0.5mL Dosage, [id number] Im Use Q2038 Given 07/30/2014 Fluzone Trivalent Immunization Q2038 Given 07/30/2014 Fluzone Trivalent Immunization [id number] Q2038 Given 07/03/2013 Fluzone Trivalent Immunization [id number] 96067 Given 05/17/2013 Zoster (Zostavax) [id number] 64521 Given 05/17/2013 Zoster (Zostavax) Q2038 Given 08/15/2012 Fluzone Trivalent Immunization [id number] Q2038 Given 07/07/2011 Fluzone Trivalent Immunization [id number] 28741 Given 10/20/2010 Tdap (Adacel) Ages 7 And Above Only [id number] 09970 Given 06/16/2010 Afluria Or Fluvirin Flu Vac Intramuscular 94895 Given 08/12/2009 Pneumococcal 23 Immunization Adult Or [id number] Immunosuppressed Patient 36095 Given 06/20/2009 Afluria Or Fluvirin Flu Vac Intramuscular [id number] 01001 Given 08/08/2008 Afluria Or Fluvirin Flu Vac Intramuscular [id number] 30012 Given 07/21/2007 Afluria Or Fluvirin Flu Vac Intramuscular 33232 Given 07/21/2007 Afluria Or Fluvirin Flu Vac Intramuscular [id number] 70690 Given 08/11/2006 Afluria Or Fluvirin Flu Vac Intramuscular [id number] Vital Signs Date Vital Result Comment 12/13/2018 3:08pm Weight 133.00 lb Heart Rate 72 /min BP Systolic 138 mmHg BP Diastolic 68 mmHg Height 63 inches 5'3" BMI (Body Mass Index) 23.6 kg/m2 10/12/2018 3:18pm Weight 133.00 lb Heart Rate 64 /min BP Systolic 190 mmHg BP Diastolic 86 mmHg 07/27/2018 3:23pm Weight 135.12 lb Heart Rate 70 /min BP Systolic 158 mmHg BP Diastolic 77 mmHg 02/09/2018 3:39pm Weight 132.12 lb Heart Rate 63 /min BP Systolic 170 mmHg 168/90 BP Diastolic 79 mmHg 168/90 08/06/2017 3:38pm Weight 133.38 lb Heart Rate 73 /min BP Systolic 147 mmHg BP Diastolic 76 mmHg 05/18/2017 2:11pm Weight 132.00 lb Heart Rate 64 /min BP Systolic 154 mmHg BP Diastolic 70 mmHg BP Systolic Recheck 140 mmHg BP Diastolic Recheck 68 mmHg Height 63 inches 5'3" BMI (Body Mass Index) 23.4 kg/m2 01/27/2017 3:04pm Weight 134.25 lb Heart Rate 62 /min BP Systolic 156 mmHg BP Diastolic 80 mmHg Height 63 inches 5'3" BMI (Body Mass Index) 23.8 kg/m2 10/26/2014 4:43pm Weight 132.50 lb Heart Rate 63 /min BP Systolic 179 mmHg BP Diastolic 77 mmHg 05/31/2014 3:13pm Weight 132.38 lb Heart Rate 63 /min BP Systolic 143 mmHg BP Diastolic 76 mmHg Height 64 inches 5'4" BMI (Body Mass Index) 22.7 kg/m2 12/28/2013 3:27pm Weight 133.50 lb Heart Rate 73 /min BP Systolic 150 mmHg BP Diastolic 72 mmHg 12/01/2013 2:03pm Weight 131.00 lb Heart Rate 65 /min BP Systolic 148 mmHg BP Diastolic 76 mmHg Height 64 inches 5'4" BMI (Body Mass Index) 22.5 kg/m2 11/28/2012 5:34pm Weight 136.00 lb Heart Rate 60 /min BP Systolic 162 mmHg BP Diastolic 78 mmHg BP Systolic Recheck 138 mmHg BP Diastolic Recheck 76 mmHg Height 64.5 inches 5'4.50" BMI (Body Mass Index) 23.0 kg/m2 05/04/2012 10:46am Weight 133.00 lb Heart Rate 77 /min BP Systolic 134 mmHg BP Diastolic 81 mmHg 04/20/2011 12:18pm Weight 140.00 lb Heart Rate 64 /min BP Systolic 156 mmHg BP Diastolic 62 mmHg BP Systolic Recheck 136 mmHg BP Diastolic Recheck 64 mmHg 10/20/2010 4:31pm Weight 139.00 lb Heart Rate 64 /min BP Systolic 142 mmHg BP Diastolic 68 mmHg BP Systolic Recheck 138 mmHg BP Diastolic Recheck 66 mmHg Height 64.75 inches 5'4.75" BMI (Body Mass Index) 23.3 kg/m2 Urine Dipstick - Blood NEGATIVE Urine Dipstick - Protein NEGATIVE Urine Dipstick - Glucose NEGATIVE 06/16/2010 3:52pm Weight 138.00 lb Heart Rate 64 /min BP Systolic 146 mmHg BP Diastolic 78 mmHg BP Systolic Recheck 128 mmHg BP Diastolic Recheck 78 mmHg 02/14/2010 3:47pm Weight 140.00 lb Heart Rate 76 /min BP Systolic 120 mmHg BP Diastolic 54 mmHg 12/09/2009 3:58pm Weight 140.00 lb Heart Rate 66 /min BP Systolic 184 mmHg BP Diastolic 81 mmHg 08/12/2009 5:59pm Weight 139.00 lb Heart Rate 72 /min BP Systolic 150 mmHg BP Diastolic 66 mmHg Height 64.75 inches 5'4.75" BMI (Body Mass Index) 23.3 kg/m2 Urine Dipstick - Blood NEGATIVE Urine Dipstick - Protein NEGATIVE Urine Dipstick - Glucose NEGATIVE 10/11/2008 3:26pm Weight 144.00 lb Heart Rate 65 /min BP Systolic 199 mmHg BP Diastolic 96 mmHg Height 64.5 inches 5'4.50" BMI (Body Mass Index) 24.3 kg/m2 03/20/2008 8:29am Weight 147.00 lb Heart Rate 71 /min BP Systolic 153 mmHg BP Diastolic 87 mmHg Height 64.5 inches 5'4.50" BMI (Body Mass Index) 24.8 kg/m2 07/21/2007 3:50pm Body Temperature 97.1 F Height 64.5 inches 5'4.50" 03/10/2007 1:23pm Weight 150.00 lb Heart Rate 80 /min BP Systolic 146 mmHg BP Diastolic 70 mmHg Height 64.5 inches 5'4.50" BMI (Body Mass Index) 25.3 kg/m2 08/11/2006 10:03am Weight 148.00 lb Heart Rate 80 /min BP Systolic 160 mmHg BP Diastolic 100 mmHg Results Test Date Facility Test Result H/L Range Note CBC with Auto Diff-fcmg 12/13/2018 [place] WBC 5.4 K/uL 4.1-11.0 RBC 4.84 M/uL [...] Gap 6 mmol/L 5-15 5 Xray 02/10/2018 [facility], <pending> [place] [address] Screening, Bilateral [phone] Lipid 05/18/2017 [place] Cholesterol 221 mg/dL High [...] 0.1 K/uL 0.0-0.3 Comprehensive Metabolic (CMP) 11/03/2013 [place] Sodium 140 mmol/L 134- 142 Potassium 5.0 [...] 20-99 21 CBC With Auto Diff 11/04/2012 [place] WBC 4.5 K/uL 4.1-11.0 22 RBC 4.58 [...] Use) Sodium 142 mmol/L 135- 144 36 [facility] [place] [address] [phone] Potassium 5.2 mmol/L 3.6-5.2 Chloride 106 mmol/L [...] Use) TSH 2.93 uIU/ml 0.34 -5.60 finding [facility] [place] [address] [phone] Vitamin D, 25 Hydroxy 43 ng/mL 31-100 Lipid Panel 09/16/2009 [facility] (Do not Use) Cholesterol 204 mg/dL High 50-199 [facility] [place] [address] [phone] Triglycerides 90 mg/dL 10-150 HDL 62 mg/dL 35-85 39 Chol/HDL Ratio 3.3 Ratio Low 3.7-5.6 40 VLDL 18 mg/dL 2-29 LDL (Calc) 124 mg/dL 20-129 41 CMP 09/16/2009 [facility] (Do not Use) Sodium 142 mmol/L 135-144 [facility] [place] [address] [phone] Potassium 4.7 mmol/L 3.6-5.2 Chloride 109 mmol/L [...] not Use) WBC 6.3 K/ul 4.0- 10.9 [facility] [place] [address] [phone] RBC 4.76 M/ul 4.20-5.40 Hemoglobin 12.8 GM/dl [...] [facility] Pap - (SEE NOTE) 46 finding [facility] [place] [address] [phone] CMP 11/02/2008 [facility] (Do not Use) Sodium 144 mmol/L 135-14 47 [facility] [address] [place] [address] [phone] Potassium 4.9 mmol/L 3.6-5.2 Chloride 110 mmol/L [...] not Use) Cholesterol 218 mg/dL High 50-199 [facility] [place] [address] [phone] Triglycerides 54 mg/dL 10-150 HDL 59 mg/dL 35-85 51 Chol/HDL Ratio 3.7 Ratio 52 VLDL 11 mg/dL LDL (Calc) 148 mg/dL High 20-129 53 Laboratory test 03/22/2008 [facility] (Do not Use) TSH 2.13 uIU/ml 0.34 -5.60 54 finding [facility] [place] [address] [phone] Vitamin D, 25 Hydroxy 33 ng/mL 19-58 CBC With Auto Diff 03/22/2008 [facility] (Do not Use) WBC 5.8 K/ul 4.0- 10.9 [facility] [place] [address] [phone] RBC 5.01 M/ul 4.20-5.40 Hemoglobin 14.5 GM/dl [...] not Use) Cholesterol 244 mg/dL High 50-199 [facility] [place] [address] [phone] Triglycerides 98 mg/dL 10-150 HDL 68 mg/dL 35-85 55 Chol/HDL Ratio 3.6 Ratio 56 VLDL 20 mg/dL LDL (Calc) 156 mg/dL High 20-129 57 CMP 03/22/2008 [facility] (Do not Use) Sodium 143 mmol/L 135-144 [facility] [place] [address] [phone] Potassium 4.9 mmol/L 3.6-5.2 Chloride 108 mmol/L [...] not Use) WBC 6.0 K/ul 4.0- 10.9 [facility] [place] [address] [phone] RBC 4.86 M/ul 4.20-5.40 Hemoglobin 14.2 GM/dl [...] (Do not Use) Sodium 142 mmol/L 135-144 [facility] [place] [address] [phone] Potassium 5.3 mmol/L High 3.6-5.2 61 Chloride [...] Use) TSH 2.97 uIU/ml 0.50 -6.00 finding [facility] [place] [address] [phone] Lipid Panel 08/31/2006 [facility] (Do not Use) Cholesterol 234 mg/dL High 50-199 [facility] [place] [address] [phone] Triglycerides 78 mg/dL 10-150 HDL 69 mg/dL 35-85 Chol/HDL Ratio 3.4 Ratio VLDL 16 mg/dL LDL (Calc) 149 mg/dL High 20-129 CBC 02/16/2002 [facility] (Do not Use) WBC 7.0 K/ul 4.1-10.9 [facility] [place] [address] [phone] RBC 4.68 M/ul 4.2-6.3 Hemoglobin 13.9 GM/dl [...] Use) Total Protein 6.5 g/dL 6.3-8.2 Panel [facility] [place] [address] [phone] Albumin 3.8 g/dL 3.5-5.0 Total Bilirubin 0.5 [...] Reference Range 6 This sample is drawn by:DILIP. 7 Specimen Slightly Lipemic 8 Per NCEP [...] high: >189 22 This sample is drawn by:DILIP. 23 Per NCEP ATP III Guidelines: Results [...] Severely decreased: 15-29 Renal Failure: <15 46 LABORATORY [facility]. [address] [place] [address] GYNECOLOGIC CYTOLOGY REPORT Accession Number: [id number] Source of Specimen(s): A: [facility] Vaginal/ Cervical/ [...] 08/16/2009 Electronically Signed Out By Florencia WALLER(ASCP) [facility] ICD9 Code: V72.31 Unless otherwise specified, testing performed by [facility] [address] [address] 47 This sample is drawn by:SRIDHAR 48 [...] kidneys. Procedures Date Code Description Status 12/13/2018 26544 Electrocardiogram Complete Completed 10/14/2018 57498 Admin Of Inj (Therapeutic Phrophylactic Or Diagnostic Completed Subq Inj 08/25/2018 50857 Physical Therapy Eval Completed 08/25/2018 28544 Nerve Conduction 7-8 Studies Completed 08/25/2018 08538 Needle Electromyography Complete, Five Or More Muscles Completed Studied 03/02/2018 85711 Admin Of Inj (Therapeutic Phrophylactic Or Diagnostic Completed Subq Inj 05/21/2017 26192 Admin Of Inj (Therapeutic Phrophylactic Or Diagnostic Completed Subq Inj 04/05/2017 [id number] Mammogram Completed 04/05/2017 [id number] Bone Mineral Density Test Completed 04/02/2016 [id number] Mammogram Completed 04/01/2015 86853203 Mammogram Completed 01/01/2014 [id number] Mammogram Completed 12/19/2013 [id number] Bone Mineral Density Test Completed 11/28/2012 22605 Electrocardiogram Complete Completed 05/05/2011 [id number] Colonoscopy Completed 10/29/2010 [id number] Mammogram Completed 10/20/2010 04842 Electrocardiogram Complete Completed 12/26/2009 31894 ECHO Transthoracis 2D W Spectral Doppler Completed 11/01/2009 05941 ECHO Transthoracis 2D W Spectral Doppler Completed 10/18/2009 28539 ECHO Transthoracis 2D W Spectral Doppler Completed 09/04/2009 56542990 Mammogram Completed 08/12/2009 67293 Electrocardiogram Complete Completed 08/12/2009 51219 Admin Of Inj (Therapeutic Phrophylactic Or Diagnostic Completed Subq Inj 06/20/2009 60749 Admin Of Inj (Therapeutic Phrophylactic Or Diagnostic Completed Subq Inj 03/20/2008 87805 Electrocardiogram Complete Completed 03/10/2007 28974 Electrocardiogram Complete Completed Encounters Type Date Location Provider Dx Diagnosis Office Visit 10/12/2018 3:00p Erin Melgoza, M79.604 Pain in RIGHT leg RN MS [employer] M79.605 Pain in LEFT leg M81.0 Age-related osteoporosis w/o current pathological fracture R03.0 Elevated blood-pressure reading, w/o diagnosis of htn Office Visit 07/27/2018 3:00p Erin Melgoza, 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 M81.0 Age-related osteoporosis w/o current pathological fracture M54.5 Low back pain M79.604 Pain in RIGHT leg Office Visit 02/09/2018 3:00p Erin Melgoza, Z00.00 Encntr for general RN MS [employer] SERVER adult medical exam w/o abnormal findings E78.2 Mixed hyperlipidemia I10 Essential (primary) hypertension Z12.31 Encntr screen mammogram for malignant neoplasm of breast Z13.820 Encounter for screening for osteoporosis M79.604 Pain in RIGHT leg Z13.89 Encounter for screening for other disorder Office Visit 08/06/2017 3:20p Erin Melgoza, M81.0 Age-related RN MS [employer] SERVER osteoporosis w/o current pathological fracture E78.2 Mixed hyperlipidemia I10 Essential (primary) hypertension Office Visit 05/18/2017 1:45p Liliam Vincent M81.0 Age-related MD Liss osteoporosis w/o current pathological fracture E78.2 Mixed hyperlipidemia Z12.11 Encounter for screening for malignant neoplasm of colon I10 Essential (primary) hypertension Z23 Encounter for immunization Office Visit 01/27/2017 3:00p Erin Melgoza, Z00.00 Encntr for general RN MS [employer] SERVER adult medical exam w/o abnormal findings E78.2 Mixed hyperlipidemia Z23 Encounter for immunization Z12.31 Encntr screen mammogram for malignant neoplasm of breast Z13.820 Encounter for screening for osteoporosis Office Visit 10/26/2014 3:00p Erin Melgoza RN 466.0 Bronchitis Acute MS [employer] Office Visit 05/31/2014 3:00p Erin Melgoza RN 401.1 Hypertension Benign MS [employer] SERVER 733.09 Osteoporosis Other 272.2 Hyperlipidemia Mixed Office Visit 12/01/2013 2:00p Erin Melgoza V70.0 Exam (Adult ) General RN MS [employer] SERVER Medical Routine AT Health Care Facility V76.19 [...] Erin Melgoza, RN 401.1 Hypertension Benign MS [employer]RAY SERVER 733.09 Osteoporosis Other 272.0 Hypercholesterolemia Pure Office Visit 04/20/2011 12:15p Liliam Vincent 401.1 Hypertension Jane Leija MD Office Visit 10/20/2010 4:30p Liliam Vincent V70.0 Exam (Adult) General Liss MD Medical Routine AT Health Care Facility 401.1 Hypertension Benign 733.09 Osteoporosis Other V76.10 Screening For Malignant Neoplasm Breast V76.51 Special Screening For Malignant Neoplasms Colon 272.0 Hypercholesterolemia Pure 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 Wwauwodkbl-Knwacfm-Wxonsebw 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 Other [...] Visit 08/12/2009 6:00p Liliam Vincent V72.31 Routine Vp Hr Diversity MD Liss Examination 401.1 Hypertension Benign 733.09 Osteoporosis Other 272.0 Hypercholesterolemia Pure 785.9 Cardiovascular Symptoms Other V76.10 Screening For Malignant Neoplasm Breast V04.89 Need For Prophylactic Vaccination & Inoculation Other Virus V03.82 Streptococcus Pneumoniae Vaccination Spec Other Office Visit 10/11/2008 3:00p Erin Melgoza, RN 401.1 Hypertension Benign MS [employer] 272.2 Hyperlipidemia Mixed Office Visit 03/20/2008 8:15a Erin Melgoza, V70.0 Exam (Adult ) General RN MS [employer] Medical Routine AT Health Care Facility V16.49 Family History Malignant Neoplasm Other 401.1 Hypertension Benign 272.2 Hyperlipidemia Mixed 719.64 Joint Symptoms Other Hand V58.66 Long-Term Use Of Aspirin Office Visit 03/10/2007 1:15p Erin Melgoza, V72.31 Routine Vp Hr Diversity RN MS [employer] Examination 272.2 Hyperlipidemia Mixed 401.1 Hypertension Benign 733.09 Osteoporosis Other V76.2 Screening Malignant Neoplasm Cervix Office Visit 08/11/2006 9:30a Erin Melgoza, RN 733.09 Osteoporosis Other MS [employer] SERVER 715.09 Osteoarthrosis Generalized Multiple Sites 401.1 Hypertension Benign 272.2 Hyperlipidemia Mixed V04.81 Need For Prophylactic Vaccination & Inoculation/Influenza V07.2 Prophylactic Immunotherapy Office Visit 02/16/2002 1:40p Erin Melgoaz, 110.1 Dermatophytosis Nail RN [employer] Plan of Treatment Future Appointment(s):03/16/2019 3:00 pm - Erin Alcala, RN [facility] [employer] [facility] at [facility]/13/2018 - Liliam Grey MDZ01.818 Encounter for other preprocedural gphgixufpooG05.16 Radiculopathy, lumbar regionNew Medication:Work Note - pt will be having surgery 12/27/18 thus out of work at least until . Relase to work per [id number] Essential (primary) hypertensionFollow up:CS 3 mosZ79.82 jail (current) use of aspirinNew Xrays:Abdomen, Ultrasound, Complete, Scheduled: 12/21/18R09.89 Other specified symptoms and signs involving the circulatoryNew Xrays:Abdomen, Ultrasound, Complete, Scheduled: 12/06
[2018-12-27] MEDS ORDERED: Sodium Citrate/Citric Acid* 15 ML UDC PO ONE (06:00)
[2018-12-27] MEDS ORDERED: Lactated Ringers 1000 ML Bag* 1,000 ML IV SCH ×2 (06:00→11:00)
[2018-12-27] MEDS ORDERED: Lidocain 1% EPI 1:100,000 * 30 ML MDV ONE (06:29)
[2018-12-27] MEDS ORDERED: Bacitracin INJECTION* 50,000 UNITS ONE (06:30)
[2018-12-27] MEDS ORDERED: Thrombin 5,000 UNITS* 1 APPLIC KIT - topical use - TOPICAL ONE (06:30)
[2018-12-27] MEDS ORDERED: ceFAZolin 2 GM in NS PREMIX(*) 2 GM/100 ML BAG IVPB ONE (06:40)
[2018-12-27] MEDS ORDERED: Buffered Lidocaine 1% SYRIN* 1 ML/SYRINGE INTRADERM ONE (06:40)
[2018-12-27] MEDS ORDERED: Sodium Citrate/Citric Acid* 15 ML UDC ONE (07:05)
[2018-12-27] MEDS ORDERED: Propofol* 10 MG/ML 20 ML BTL ONE (07:23)
[2018-12-27] MEDS ORDERED: Rocuronium* 10 MG/ML VIAL ONE (07:24)
[2018-12-27] MEDS ORDERED: Lidocaine 2% PF * 5 ML VIAL ONE (07:24)
[2018-12-27] MEDS ORDERED: fentaNYL* 50 MCG/ML 2 ML VIAL (100 MCG VIAL) ONE ×2 (07:25→10:59)
[2018-12-27] MEDS ORDERED: DiMENhydriNATE IV* 50 MG/ML VIAL IV PUSH PRN (07:32)
[2018-12-27] MEDS ORDERED: Naloxone* 0.4 MG/ML 1 ML VIAL IV PRN (07:32)
[2018-12-27] MEDS ORDERED: Ondansetron INJ* 2 MG/ML VIAL IV PRN (10:30)
[2018-12-27] MEDS ORDERED: Senna TAB PO PRN (10:33)
[2018-12-27] MEDS ORDERED: Docusate CAP* 100 MG PO PRN (10:33)
[2018-12-27] MEDS: fentaNYL* 50 MCG/ML 2 ML VIAL (100 MCG VIAL) IV PRN ×2 (11:10→11:36)
[2018-12-27] MEDS ORDERED: Cyclobenzaprine TAB* 10 MG ONE (12:20)
[2018-12-27] MEDS: Cyclobenzaprine TAB* 10 MG PO PRN (12:26)
[2018-12-27] MEDS: Hydrochlorothiazide TAB* 25 MG PO SCH (13:42)
[2018-12-27] MEDS: Lisinopril TAB* 10 MG PO SCH (13:42)
[2018-12-27] MEDS: HYDROcodone/ACETAMIN 5-325 MG* 1 TAB PO PRN ×2 (13:43→18:50)
[2018-12-28] MEDS: Cyclobenzaprine TAB* 10 MG PO PRN ×2 (00:04→08:22)
[2018-12-28] MEDS: Acetaminophen TAB* 325 MG PO PRN ×2 (00:05→08:21)
--- NOTE | 2018-12-28 08:05 | PN ---
Progress Note - Progress Note Date of Service: 12/28/18 SOAP: Subjective: [S/p L4-5 decompressive lumbar laminectomy and instrumented fusion, POD #1. Feeling well this morning, reports incisional soreness. Pain well controlled with PO medication Ambulating independently Eating and drinking well Denies nausea, headache. Reports improvement in bilateral buttocks and lower extremity pain with standing and walking. ] Objective: [ Vital Signs: Temp Pulse Resp BP Pulse Ox 98.6 F 72 17 119/42 96 12/28/18 04:02 12/28/18 04:02 12/28/18 04:02 12/28/18 04:02 12/28/18 04:02 General: Alert, NAD Neuro: Motor and sensory intact Incision: Intact with cornelia. Wound drain not functioning well until stitch cut. Now draining well. No swelling, erythema. Wound drain output 12/27/18 12/27/18 12/27/18 11:35 14:14 18:20 Output, JUNE #1 30 10 10 12/27/18 12/28/18 21:59 05:00 Output, JUNE #1 5 2 ] Assessment: [Satisfactory post-op. Wound drain requires further monitoring.] Plan: [1. Continue to monitor drain output Q4H 2. Continue pain management 3. Encourage OOB and ambulation 4. Possible discharge home tomorrow]
[2018-12-28] MEDS: Hydrochlorothiazide TAB* 25 MG PO SCH (08:21)
[2018-12-28] MEDS: Lisinopril TAB* 10 MG PO SCH (08:22)
[2018-12-28] MEDS: HYDROcodone/ACETAMIN 5-325 MG* 1 TAB PO PRN ×2 (14:07→18:14)
[2018-12-29] MEDS: Cyclobenzaprine TAB* 10 MG PO PRN (02:14)
[2018-12-29] MEDS: HYDROcodone/ACETAMIN 5-325 MG* 1 TAB PO PRN ×2 (04:10→11:06)
[2018-12-29] MEDS: Lisinopril TAB* 10 MG PO SCH (09:11)
[2018-12-29] MEDS: Hydrochlorothiazide TAB* 25 MG PO SCH (09:11)
--- NOTE | 2018-12-29 10:37 | PN ---
Progress Note - Progress Note Date of Service: 12/29/18 SOAP: Subjective: [S/p L4-5 decompression and instrumented fusion, POD #2. Feeling well this morning, eager to go home Ambulating well independently Lower extremity symptoms improved with walking and standing Pain well controlled with PO medications Eating and drinking well Denies headache, nausea] Objective: [ Vital Signs: Temp Pulse Resp BP Pulse Ox 98.0 F 77 18 103/51 97 12/29/18 07:22 12/29/18 07:22 12/29/18 08:00 12/29/18 07:22 12/29/18 08:00 General: Sitting up on bedside, NAD Neuro: Motor and sensory intact Incision: Intact with cornelia, no swelling. Mild amount ecchymosis inferior to incision. Drain discontinued today without complication. Wound drin output 12/27/18 12/27/18 12/27/18 11:35 14:14 18:20 Output, JUNE #1 30 10 10 12/27/18 12/28/18 12/28/18 21:59 05:00 08:43 Output, JUNE #1 5 2 40 12/28/18 12/28/18 12/28/18 14:00 18:18 22:00 Output, JUNE #1 70 20 15 12/29/18 12/29/18 02:18 06:10 Output, JUNE #1 30 20 ] Assessment: [Satisfactory post-op] Plan: [1. Discharge home today 2. Discharge instructions discussed]
[2018-12-29 11:38] VITALS: BP 122/63
--- NOTE | 2019-01-02 23:28 | OP ---
DATE OF OPERATION: 12/27/18 - ROOM #331 DATE OF : 42 SURGEON: Christian Rivas MD TECHNICAL WRITER: VALENTE Daniels ANESTHESIA: General. PRE-OP DIAGNOSIS: Lumbar spinal stenosis, L4-5 with spondylolisthesis, L4-5. POST-OP DIAGNOSIS: Lumbar spinal stenosis, L4-5 with spondylolisthesis, L4-5. OPERATIVE PROCEDURES: Decompressive lumbar laminectomy, L4-5 with posterolateral fusion L4-5 with posterior nonsegmental instrumentation L4-5, use of stereotactic guidance for screw placement, harvesting of autograft for fusion. DESCRIPTION OF PROCEDURE: After satisfactory general anesthesia was obtained, the patient was placed on the Xavier table in the prone position. The lumbar region was then clipped, prepped and draped in a sterile manner for lumbar laminectomy and a skin incision outlined from L3 to the sacrum. This incision was infiltrated with 1% Xylocaine with epinephrine, after which it was turned down sharply to the level of the lumbar fascia. The fascia was divided along the spinous processes from L4 to the upper sacrum and the paraspinal musculature stripped away from these posterior elements using the periosteal elevator and monopolar cautery. Lateral exposure was obtained until the transverse process of L4 and L5 were visualized. At this point of procedure, the O-arm intraoperative CT scan was brought into the field. The stealth reference frame was attached to the L5 spinous process. An initial spin was then performed with the O-arm and good visualization of the anatomy seen. The next step in the procedure was checking the accuracy of the navigation, which was done and was felt to be very good. Pedicle screws were then placed in L4 and L5, initially on the left-side at L4, where a 6.5 mm in diameter, 45-mm length screw was placed utilizing stereotactic navigation. On the left side, a similar screw was placed. Attention was then directed to L5 pedicles, where a 6.5 mm, 40-mm length screws were placed. An additional spin was then performed , which confirmed good placement of the pedicle screws. Attention was then directed back to the L4-5 region and the spinous processes of L4 and the superior aspect of L5 were removed to be used as autograft for fusion later in the procedure. A decompression was then carried out by thinning out the remaining portion at the base of the spinous process and lamina of L4. This was then removed with Kerrison until the entire posterior elements of L4 had been removed. Generous lateral exposure was obtained until a good decompression had been achieved. At the conclusion of the decompression, both the L4 and L5 nerve roots were noted to be free in their course. At the level of L4-5 disk, there was noted to be heaped up annular material projecting back posteriorly. This was palpated and was felt to be firm. It was felt that excellent decompression had been achieved. Rods were then selected to fit into the pedicle screws and were secured. A bone log was performed utilizing both autograft and allograft as well as DBX bone putty. The bone log was placed bilaterally out over the transverse processes of both L4-5. After assuring adequate hemostasis, the wound was irrigated. After which a drain was placed in the epidural space and tunneled out toward the left side. The fascia was then reapproximated with 0 Vicryl suture. The subcutaneous tissues closed with 2 and 3-0 Vicryl sutures and skin closed with skin clips. The estimated blood loss was 250 cc and final sponge, padding, and needle counts were correct. The patient was taken to the recovery room, extubated, and in stable condition. [id number] #: [id number]
== END 2018-12-29 11:41 | disposition home or self-care (01) | DRG 460 ==
LOC: AA 05:37 → SSU 10:31
PROVIDERS: ADMIT Neurological Surgery; ATTEND Neurological Surgery
PROC: 0SG0070 Fusion of Lumbar Vertebral Joint with Autologous Tissue Substitute, Anterior Approach, Anterior Column, Open Approach (ICD-10-PCS; principal; 2018-12-27 07:30)
DX: M48.062 Spinal stenosis, lumbar region with neurogenic claudication (principal); M43.16 Spondylolisthesis, lumbar region; M54.16 Radiculopathy, lumbar region; I10 Essential (primary) hypertension; E78.2 Mixed hyperlipidemia; Z80.0 Family history of malignant neoplasm of digestive organs; Z83.3 Family history of diabetes mellitus
CPT/HCPCS: 76000; A9270-GY; C1713; C1776; J0690; J2704; J3010

== ENCOUNTER 2023-02-02 11:06 | Inpatient (IN) ==
[2023-02-02] MEDS ORDERED: Labetalol IV 5 MG/ML 20 ml VIAL IV PUSH ONE (14:04)
[2023-02-02] MEDS ORDERED: Magnesium Hydroxide LIQ 30 ML UDC PO PRN (14:06)
[2023-02-02] MEDS ORDERED: Senna TAB 8.6 mg TAB PO PRN (14:06)
[2023-02-02] MEDS ORDERED: Polyethylene Glycol 3350 17 GM PACKET PO PRN (14:06)
[2023-02-02 14:09] LABS: ABS Eosinophils 0.2 10^3/uL (0.0-0.5); ABS Lymphocytes 1.3 10^3/uL (1.0-4.8); ABS Monocytes 0.5 10^3/uL (0.0-0.9); ABS Neutrophils 8.7 10^3/uL (1.5-7.6); Eosinophil % 2.2 %; Hematocrit 41.9 % (35-45); Hemoglobin 14.1 g/dL (11.5-14.3); Lymphocyte % 11.9 %; Mean Corpuscular Hemoglobin 28.4 pg (27-33); Mean Corpuscular Hgb Conc 33.7 g/dL (31-36); Mean Corpuscular Volume 84.2 fL (80-97); Mean Platelet Volume 6.5 fL (7.5-11.2); Platelet Count 238 10^3/uL (150-450); Red Blood Count 4.97 10^6/uL (3.63-4.92); Red Cell Distribution Width 14.8 % (12-17); White Blood Count 10.8 10^3/uL (3.8-11.8)
[2023-02-02 14:15] LABS: Activated Partial Thrombo Time 32.2 seconds (26.0-38.0); INR 1.12 (0.88-1.18)
[2023-02-02] MEDS ORDERED: Lisinopril/HCTZ 20/12.5 TB(NF) PO SCH (15:00)
[2023-02-02 15:01] LABS: Albumin 4.1 g/dL (3.2-5.2); Albumin/Globulin Ratio 2.2 (1-3); Creatinine, Serum 0.92 mg/dL (0.51-0.95); Globulin 1.9 g/dL (2-4); Potassium 4.4 mmol/L (3.5-5.0); Total Bilirubin 0.9 mg/dL (0.2-1.0); eGFR CKD-EPI 62.6 (>60)
[2023-02-02] MEDS ORDERED: Enoxaparin 40 MG/0.4 ML SYR SUBCUT ONE (15:28)
[2023-02-03 05:46] LABS: ABS Basophils 0.1 10^3/uL (0.0-0.1); ABS Eosinophils 0.4 10^3/uL (0.0-0.5); ABS Lymphocytes 0.9 10^3/uL (1.0-4.8); ABS Monocytes 0.5 10^3/uL (0.0-0.9); ABS Neutrophils 6.3 10^3/uL (1.5-7.6); ABS Nucleated RBC 0.01 10^3/ul; Eosinophil % 5.3 %; Hematocrit 39.2 % (35-45); Hemoglobin 13.5 g/dL (11.5-14.3); Lymphocyte % 11.2 %; Mean Corpuscular Hemoglobin 28.5 pg (27-33); Mean Corpuscular Hgb Conc 34.3 g/dL (31-36); Mean Platelet Volume 6.8 fL (7.5-11.2); Nucleated Red Blood Cells % 0.1 /100 WBC (0.0-0.4); Platelet Count 229 10^3/uL (150-450); Red Blood Count 4.73 10^6/uL (3.63-4.92); Red Cell Distribution Width 14.9 % (12-17); White Blood Count 8.3 10^3/uL (3.8-11.8)
[2023-02-03 06:11] LABS: Calcium 9.9 mg/dL (8.6-10.3); Creatinine, Serum 0.97 mg/dL (0.51-0.95); Magnesium 2.2 mg/dL (1.9-2.7); Potassium 4.2 mmol/L (3.5-5.0); eGFR CKD-EPI 58.7 (>60)
[2023-02-03] MEDS ORDERED: Propofol 10 MG/ML 20 ML BTL ONE (12:05)
[2023-02-03] MEDS ORDERED: ceFAZolin 2 GM in NS PREMIX 2 GM/100 ML BAG IVPB ONE (12:38)
[2023-02-03] MEDS ORDERED: Sodium Citrate/Citric Acid LIQ 15 ML UDC ONE (13:08)
[2023-02-03] MEDS ORDERED: Lidocaine 2% PF 5 ML VIAL ONE (13:19)
[2023-02-03] MEDS ORDERED: fentaNYL 100 mcg/2 ml 50 MCG/ML VIAL ONE (13:19)
[2023-02-03] MEDS ORDERED: Phenylephrine 40 mcg/mL 10mL (400mcg) SYRINGE ONE (14:36)
[2023-02-03] MEDS ORDERED: Ondansetron 4 mg VIAL 2 MG/ML 2 ml VIAL ONE (14:44)
[2023-02-03] MEDS ORDERED: Sodium Citrate/Citric Acid LIQ 15 ML UDC PO ONE (15:06)
[2023-02-03] MEDS ORDERED: Naloxone 0.4 mg VIAL 0.4 mg/ml 1 ml VIAL IV PRN (15:07)
[2023-02-03] MEDS ORDERED: Acetaminophen IV 1 GM/100ML 1,000 MG/100 ML BAG IV ONE (15:07)
[2023-02-03] MEDS ORDERED: Prochlorperazine 5 mg/ml 2 ml VIAL (10 mg) IV PRN (15:07)
[2023-02-03] MEDS ORDERED: fentaNYL 100 mcg/2 ml 50 MCG/ML VIAL IV PRN (15:07)
[2023-02-03 15:31] LABS: Hematocrit 39.5 % (35-45); Hemoglobin 13.4 g/dL (11.5-14.3)
[2023-02-03] MEDS: ceFAZolin 1 GM X 3 DOSES POST-OP Q8H (AddVan) IVPB SCH (22:56)
[2023-02-04] MEDS: ceFAZolin 1 GM X 3 DOSES POST-OP Q8H (AddVan) IVPB SCH ×2 (05:47→14:03)
[2023-02-04 05:56] LABS: ABS Eosinophils 0.3 10^3/uL (0.0-0.5); ABS Lymphocytes 0.7 10^3/uL (1.0-4.8); ABS Monocytes 0.6 10^3/uL (0.0-0.9); ABS Neutrophils 8.8 10^3/uL (1.5-7.6); Eosinophil % 2.8 %; Hematocrit 34.3 % (35-45); Hemoglobin 11.9 g/dL (11.5-14.3); Lymphocyte % 6.9 %; Mean Corpuscular Hemoglobin 28.9 pg (27-33); Mean Corpuscular Hgb Conc 34.8 g/dL (31-36); Mean Corpuscular Volume 83.2 fL (80-97); Platelet Count 200 10^3/uL (150-450); Red Blood Count 4.12 10^6/uL (3.63-4.92); Red Cell Distribution Width 14.7 % (12-17); White Blood Count 10.4 10^3/uL (3.8-11.8)
[2023-02-04 06:21] LABS: Calcium 9.3 mg/dL (8.6-10.3); Creatinine, Serum 1.18 mg/dL (0.51-0.95); Potassium 4.8 mmol/L (3.5-5.0); eGFR CKD-EPI 46.4 (>60)
[2023-02-04] MEDS ORDERED: NS 0.9% 500 ml BAG 500 ML IV SCH (08:00)
[2023-02-04] MEDS ORDERED: Enoxaparin 40 MG/0.4 ML SYR SUBCUT SCH (09:00)
[2023-02-04 15:04] VITALS: BP 125/75
== END 2023-02-04 16:30 | disposition home or self-care (01) | DRG 481 ==
LOC: ED 11:06 → EDHOLD 14:10 → SUATTDRO 14:10 → SSU 15:17
PROVIDERS: ADMIT Internal Medicine; ATTEND Internal Medicine